=== PATIENT | female | born 1935 | race Caucasian/White ===

== ENCOUNTER → 2016-10-12 | Outpatient (CLI) | payer OTHER ==
[~2016-10-12] MED LIST: METR-103; ROSU5TAB5 PO
[2016-10-12 10:32] LABS: Albumin 3.7 g/dL (3.4-5.0); BUN/Creatinine Ratio 14.1; Bilirubin, Total 0.4 mg/dL (0.2-1.0); Calcium 9.2 mg/dL (8.5-10.1); Potassium 4.5 mmol/L (3.5-5.1); Total Protein 7.5 g/dL (6.4-8.2)
== END | disposition home or self-care (01) ==
LOC: LAB 08:54
PROVIDERS: ATTEND Family Medicine
DX: E78.5 Hyperlipidemia, unspecified (principal); E58 Dietary calcium deficiency
CPT/HCPCS: 36415; 80053; 80061; 82607

== ENCOUNTER → 2017-06-01 | Outpatient (CLI) | payer MEDICARE, OTHER ==
[2017-06-01 07:48] LABS: Urine RBC None Seen /hpf (0 - 4)
[2017-06-01 07:56] LABS: Basophils # (auto) 0 uL; CONDITION Y; DEFINITIVE SEE PRINTOUT; Eosinophils # (auto) 0.1 uL; Lymphocytes # (auto) 1.4 uL; Monocytes # (auto) 0.4 uL; Neutrophils # (auto) 3.2 uL; Platelet Count (auto) 283 10^3/uL (140-450); White Blood Cell 5.1 10^3/uL (4.4-10.8)
[2017-06-01 08:07] LABS: Urine Bilirubin Negative (Negative); Urine Blood Negative /uL (Negative); Urine Color Yellow (Yellow); Urine Glucose Normal (Normal); Urine Ketone Negative (Negative); Urine Nitrite Negative (Negative); Urine Squamous Epithelial Cell FEW /hpf (<5); Urine Urobilinogen Normal (Negative); Urine pH 7.5 (5.0-8.0)
[2017-06-01 08:08] LABS: Basophils % (auto) 0.6 % (0.0-2.0); Eosinophils % (auto) 1.6 % (0.0-7.0); Hematocrit 38.6 % (36.0-46.0); Hemoglobin 12.7 g/dL (12.2-16.2); Mean Corpuscular Hemoglobin 27.2 pg (28.0-32.0); Mean Corpuscular Volume 82.6 fL (80.0-100.0); Mean Platelet Volume 9.1 fL (7.4-10.4); Monocytes % (auto) 7.9 % (0.0-12.0); Neutrophils % (auto) 62.9 % (37.0-80.0); Red Cell Distribution Width 16.1 % (11.6-16.0)
[2017-06-01 08:32] LABS: Albumin 3.7 g/dL (3.4-5.0); Bilirubin, Total 0.3 mg/dL (0.2-1.0); Calcium 9.1 mg/dL (8.5-10.1); Potassium 4.1 mmol/L (3.5-5.1); Total Protein 7.3 g/dL (6.4-8.2)
== END | disposition home or self-care (01) ==
LOC: LAB 06:52
PROVIDERS: ATTEND Family Medicine
DX: E78.5 Hyperlipidemia, unspecified (principal); E53.8 Deficiency of other specified B group vitamins; E55.9 Vitamin D deficiency, unspecified; R73.09 Other abnormal glucose
CPT/HCPCS: 36415; 80053; 80061; 81001; 82306; 82607; 83036; 84443; 85025

== ENCOUNTER → 2017-10-06 | Outpatient (CLI) | payer MEDICARE, OTHER | END | disposition home or self-care (01) | LOC: LAB 12:10 | PROVIDERS: ATTEND Physician Assistant | DX: R19.7 Diarrhea, unspecified (principal); R11.0 Nausea | CPT/HCPCS: 87045; 87177; 87493; 87899 ==

== ENCOUNTER → 2018-01-25 | Outpatient (CLI) | payer MEDICARE, OTHER | END | disposition home or self-care (01) | LOC: LAB 09:36 | PROVIDERS: ATTEND Family Medicine | DX: E03.9 Hypothyroidism, unspecified (principal); E78.5 Hyperlipidemia, unspecified | CPT/HCPCS: 36415; 84443 ==

== ENCOUNTER → 2018-06-13 | Outpatient (CLI) | payer MEDICARE, OTHER ==
[~2018-06-13] MED LIST changes: +LEVO25TA6 PO; +PANT40TA2 PO
[2018-06-13 08:30] LABS: Eosinophils # (auto) 0.1 uL; Hematocrit 34.7 % (36.0-46.0); Hemoglobin 11.4 g/dL (12.2-16.2); Lymphocytes # (auto) 1.4 uL; Monocytes # (auto) 0.7 uL; Neutrophils # (auto) 4.7 uL; White Blood Cell 6.9 10^3/uL (4.4-10.8)
[2018-06-13 08:32] LABS: Basophils # (auto) 0.1 uL; Basophils % (auto) 0.8 % (0.0-2.0); Eosinophils % (auto) 1.6 % (0.0-7.0); Mean Corpuscular Hgb Conc. 32.9 g/dL (32.0-36.0); Mean Corpuscular Volume 75.1 fL (80.0-100.0); Monocytes % (auto) 9.5 % (0.0-12.0); Neutrophils % (auto) 68.1 % (37.0-80.0); Platelet Count (auto) 456 10^3/uL (140-450); Red Blood Cells 4.62 10^6/uL (4.0-5.20); Urine Bacteria FEW /hpf (None Seen); Urine Blood Negative /uL (Negative); Urine Mucus FEW (None Seen); Urine Specific Gravity 1.012 (1.001-1.035); Urine WBC 14 /hpf (0 - 5)
[2018-06-13 08:34] LABS: Mean Corpuscular Hemoglobin 24.8 pg (28.0-32.0)
[2018-06-13 08:52] LABS: Albumin 3.3 g/dL (3.4-5.0); BUN/Creatinine Ratio 15.9; Bilirubin, Total 0.4 mg/dL (0.2-1.0); Calcium 9.2 mg/dL (8.5-10.1); Potassium 4.1 mmol/L (3.5-5.1); Total Protein 7.9 g/dL (6.4-8.2)
== END | disposition home or self-care (01) ==
LOC: LAB 07:50
PROVIDERS: ATTEND Family Medicine
DX: E03.9 Hypothyroidism, unspecified (principal); E53.8 Deficiency of other specified B group vitamins; E78.4 Other hyperlipidemia; K21.9 Gastro-esophageal reflux disease without esophagitis; R05 Cough; R73.09 Other abnormal glucose
CPT/HCPCS: 36415; 80053; 80061; 81001; 82607; 83036; 84443; 85025

== ENCOUNTER 2018-07-17 08:03 | Day surgery (SDC) | payer MEDICARE, OTHER ==
[2018-07-13 10:04] LABS: Basophils # (auto) 0 uL; Basophils % (auto) 0.5 % (0.0-2.0); Eosinophils # (auto) 0.1 uL; Eosinophils % (auto) 1.2 % (0.0-7.0); Hematocrit 33.8 % (36.0-46.0); Hemoglobin 11.3 g/dL (12.2-16.2); Lymphocytes # (auto) 1.3 uL; Lymphocytes % (auto) 15.9 % (10.0-50.0); Mean Corpuscular Hemoglobin 25.1 pg (28.0-32.0); Mean Corpuscular Hgb Conc. 33.5 g/dL (32.0-36.0); Mean Corpuscular Volume 74.8 fL (80.0-100.0); Monocytes # (auto) 0.8 uL; Monocytes % (auto) 9.7 % (0.0-12.0); Neutrophils # (auto) 6.2 uL; Neutrophils % (auto) 72.7 % (37.0-80.0); Platelet Count (auto) 401 10^3/uL (140-450); Red Blood Cells 4.52 10^6/uL (4.0-5.20); Red Cell Distribution Width 16.4 % (11.8-14.3); White Blood Cell 8.5 10^3/uL (4.4-10.8)
[2018-07-13 10:08] LABS: Urine Blood Negative /uL (Negative); Urine Specific Gravity 1.008 (1.001-1.035)
[2018-07-13 10:24] LABS: INR 0.94 (0.9-1.15); Partial Thromboplastin Time 28.7 sec (23.78-33.04); Prothrombin Time 10.1 sec (9.27-12.13)
[~2018-07-17] VITALS: Ht 170.2 cm; Wt 64.0 kg
[~2018-07-17 08:03] MED LIST changes: -METR-103; -ROSU5TAB5 PO
[2018-07-17] MEDS ORDERED: SODIUM CHLORIDE LOCK 10 ML ONE (08:26)
[2018-07-17] MEDS: fentaNYL CITRATE 100 MCG/2 ML VL ONE ×2 (09:31→09:35)
[2018-07-17] MEDS: MIDAZOLAM HCL 5 MG/ML-1ML VIAL ONE ×3 (09:31→09:40)
[2018-07-17 10:25] VITALS: BP 113/79
== END 2018-07-17 10:28 | disposition home or self-care (01) ==
LOC: GI 08:03
PROVIDERS: ATTEND Internal Medicine Gastroenterology
DX: K57.30 Diverticulosis of large intestine without perforation or abscess without bleeding (principal); K64.8 Other hemorrhoids; K21.9 Gastro-esophageal reflux disease without esophagitis; Z88.0 Allergy status to penicillin; Z88.1 Allergy status to other antibiotic agents; Z88.2 Allergy status to sulfonamides; Z90.49 Acquired absence of other specified parts of digestive tract; Z90.13 Acquired absence of bilateral breasts and nipples; Z79.899 Other long term (current) drug therapy; Z98.890 Other specified postprocedural states
CPT/HCPCS: 36415; 45378; 81003; 85025; 85610; 85730; J2250; J3010; J7030; G0500

== ENCOUNTER → 2018-08-11 | Outpatient (CLI) | payer MEDICARE, OTHER | END | disposition home or self-care (01) | LOC: LAB 09:58 | PROVIDERS: ATTEND Family Medicine | DX: E03.9 Hypothyroidism, unspecified (principal); E55.9 Vitamin D deficiency, unspecified; R79.89 Other specified abnormal findings of blood chemistry | CPT/HCPCS: 36415; 82306; 82607; 84443 ==

== ENCOUNTER → 2019-06-25 | Outpatient (CLI) | payer MEDICARE, OTHER ==
[2019-06-25 08:58] LABS: Urine Bacteria NONE SEEN /hpf (None Seen); Urine Blood Negative /uL (Negative); Urine Specific Gravity 1.013 (1.001-1.035); Urine WBC 4 /hpf (0 - 5)
[2019-06-25 08:59] LABS: Basophils # (auto) 0 uL; Basophils % (auto) 0.7 % (0.0-2.0); Eosinophils # (auto) 0.1 uL; Eosinophils % (auto) 0.8 % (0.0-7.0); Hematocrit 37.7 % (36.0-46.0); Hemoglobin 12.3 g/dL (12.2-16.2); Lymphocytes # (auto) 1.3 uL; Lymphocytes % (auto) 19.3 % (10.0-50.0); Mean Corpuscular Hemoglobin 24.8 pg (28.0-32.0); Mean Corpuscular Hgb Conc. 32.6 g/dL (32.0-36.0); Mean Corpuscular Volume 76.2 fL (80.0-100.0); Monocytes # (auto) 0.5 uL; Monocytes % (auto) 8.1 % (0.0-12.0); Neutrophils # (auto) 4.8 uL; Neutrophils % (auto) 71.1 % (37.0-80.0); Platelet Count (auto) 312 10^3/uL (140-450); Red Blood Cells 4.94 10^6/uL (4.0-5.20); Red Cell Distribution Width 17.6 % (11.8-14.3); White Blood Cell 6.7 10^3/uL (4.4-10.8)
[2019-06-25 09:16] LABS: Potassium 4.3 mmol/L (3.5-5.1)
[2019-06-25 09:26] LABS: Albumin 3.6 g/dL (3.4-5.0); BUN/Creatinine Ratio 14.3; Bilirubin, Total 0.5 mg/dL (0.2-1.0); Calcium 9.5 mg/dL (8.5-10.1); Total Protein 7.8 g/dL (6.4-8.2)
== END | disposition home or self-care (01) ==
LOC: LAB 07:54
PROVIDERS: ATTEND Family Medicine
DX: E55.9 Vitamin D deficiency, unspecified (principal); E03.9 Hypothyroidism, unspecified; E78.00 Pure hypercholesterolemia, unspecified; K21.9 Gastro-esophageal reflux disease without esophagitis; K62.3 Rectal prolapse; R74.8 Abnormal levels of other serum enzymes
CPT/HCPCS: 36415; 80053; 80061; 81001; 82607; 84443; 85025

== ENCOUNTER → 2019-07-09 | Day surgery (SDC) | payer OTHER ==
[2019-07-06 09:19] LABS: Eosinophils # (auto) 0.1 uL; Lymphocytes # (auto) 1.4 uL; Platelet Count (auto) 302 10^3/uL (140-450)
[2019-07-06 09:22] LABS: Basophils # (auto) 0 uL; Basophils % (auto) 0.6 % (0.0-2.0); Hematocrit 35.1 % (36.0-46.0); Lymphocytes % (auto) 21.6 % (10.0-50.0); Mean Corpuscular Hemoglobin 25.3 pg (28.0-32.0); Mean Corpuscular Hgb Conc. 34.2 g/dL (32.0-36.0); Mean Corpuscular Volume 73.8 fL (80.0-100.0); Monocytes # (auto) 0.5 uL; Monocytes % (auto) 8.5 % (0.0-12.0); Neutrophils # (auto) 4.4 uL; Neutrophils % (auto) 68.3 % (37.0-80.0); Red Blood Cells 4.75 10^6/uL (4.0-5.20); Red Cell Distribution Width 16.9 % (11.8-14.3); White Blood Cell 6.5 10^3/uL (4.4-10.8)
[2019-07-06 09:35] LABS: INR 0.93 (0.9-1.15); Partial Thromboplastin Time 28.3 sec (23.64-32.05)
[~2019-07-09] VITALS: Ht 170.2 cm; Wt 64.0 kg
[~2019-07-09] MED LIST changes: +FLUMAZENIL 0.1 MG/ML INJ 10ML MDV IV ONE; +NALOXONE HCL 0.4 MG/ML VIAL ONE; -PANT40TA2 PO; +SODIUM CHLORIDE LOCK 10 ML ONE; +diphenhdrAMINE HCL 50 MG/1 ML VL ONE
[2019-07-09] MEDS: fentaNYL CITRATE 100 MCG/2 ML VL ONE ×3 (09:15→09:27)
[2019-07-09] MEDS: MIDAZOLAM HCL 5 MG/ML-1ML VIAL ONE ×3 (09:15→09:27)
[2019-07-09 10:13] VITALS: BP 139/76
== END | disposition home or self-care (01) ==
LOC: GI 07:47
PROVIDERS: ATTEND Internal Medicine Gastroenterology
DX: K62.5 Hemorrhage of anus and rectum (principal); K62.3 Rectal prolapse; D12.0 Benign neoplasm of cecum; K57.30 Diverticulosis of large intestine without perforation or abscess without bleeding; M81.0 Age-related osteoporosis without current pathological fracture; E78.5 Hyperlipidemia, unspecified; K21.9 Gastro-esophageal reflux disease without esophagitis; E78.00 Pure hypercholesterolemia, unspecified; I10 Essential (primary) hypertension; Z85.840 Personal history of malignant neoplasm of eye; Z86.010 Personal history of colon polyps; Z98.890 Other specified postprocedural states; Z88.1 Allergy status to other antibiotic agents; Z88.8 Allergy status to other drugs, medicaments and biological substances; Z88.0 Allergy status to penicillin; Z88.2 Allergy status to sulfonamides; Z78.0 Asymptomatic menopausal state
CPT/HCPCS: 36415; 45380; 85025; 85610; 85730; 88305; J1200; J2250; J3010; J7030; 99152

== ENCOUNTER → 2020-02-19 | Emergency (ER) | payer OTHER ==
[~2020-02-19] VITALS: Ht 170.2 cm; Wt 62.6 kg
[~2020-02-19] MED LIST changes: -FLUMAZENIL 0.1 MG/ML INJ 10ML MDV IV ONE; +IOHEXOL 350 MG/ML 100ML IJ ONE; -NALOXONE HCL 0.4 MG/ML VIAL ONE; -SODIUM CHLORIDE LOCK 10 ML ONE; -diphenhdrAMINE HCL 50 MG/1 ML VL ONE
[2020-02-19 17:49] LABS: Basophils # (auto) 0 10 ^3/uL (0-0.2); Eosinophils # (auto) 0 10 ^3/uL (0-0.8); Hemoglobin 11.2 g/dL (12.2-16.2); Lymphocytes # (auto) 1.8 10 ^3/uL (0.4-5.4); Monocytes # (auto) 0.8 10 ^3/uL (0-1.3); Neutrophils # (auto) 4.6 10 ^3/uL (1.6-8.6)
[2020-02-19 17:51] LABS: Basophils % (auto) 0.5 % (0.0-2.0); Eosinophils % (auto) 0.3 % (0.0-7.0); Hematocrit 34.2 % (36.0-46.0); Lymphocytes % (auto) 24.9 % (10.0-50.0); Mean Corpuscular Hemoglobin 24.1 pg (28.0-32.0); Mean Corpuscular Hgb Conc. 32.8 g/dL (32.0-36.0); Mean Corpuscular Volume 73.5 fL (80.0-100.0); Monocytes % (auto) 10.4 % (0.0-12.0); Neutrophils % (auto) 63.9 % (37.0-80.0); Nucleated Red Blood Cells % 0.1 %; Platelet Count (auto) 466 10^3/uL (140-450); Red Blood Cells 4.65 10^6/uL (4.0-5.20); Red Cell Distribution Width 15.7 % (11.8-14.3); White Blood Cell 7.2 10^3/uL (4.4-10.8)
[2020-02-19 18:05] LABS: Anion Gap 6 (5-15); BUN/Creatinine Ratio 18.5; Blood Urea Nitrogen 10 mg/dL (7-18); Carbon Dioxide 27 mmol/L (21-32); Chloride 103 mmol/L (98-107); GFR African American 139 mL/min; GFR Non-African American 115 mL/min; Glucose 120 mg/dL (74-106); Potassium 3.4 mmol/L (3.5-5.1); Sodium 136 mmol/L (136-145)
[2020-02-19 18:06] LABS: Albumin 3.1 g/dL (3.4-5.0); Calcium 8.7 mg/dL (8.5-10.1)
[2020-02-19 18:11] LABS: Alanine Aminotransferase 13 U/L (13-56); Alkaline Phosphatase 97 U/L (45-117); Aspartate Aminotransferase 9 U/L (15-37); Bilirubin, Total 0.3 mg/dL (0.2-1.0)
[2020-02-19 22:28] VITALS: BP 133/76
== END | disposition home or self-care (01) ==
LOC: ER 17:25
DX: J06.9 Acute upper respiratory infection, unspecified (principal)
CPT/HCPCS: 36415; 71275; 80053; 83735; 83880; 84484; 85025; 85379; 93005; 99285; Q9967

== ENCOUNTER → 2020-02-20 | Outpatient (CLI) | payer OTHER ==
[~2020-02-20] MED LIST changes: -IOHEXOL 350 MG/ML 100ML IJ ONE
== END | disposition home or self-care (01) ==
LOC: LAB 07:25
PROVIDERS: ATTEND Nurse Practitioner
DX: Z03.818 Encounter for observation for suspected exposure to other biological agents ruled out (principal)
CPT/HCPCS: C9803; U0003; 87635

== ENCOUNTER 2020-04-09 11:20 | Inpatient (IN) | payer OTHER ==
[~2020-04-09] VITALS: Ht 170.2 cm; Wt 75.6 kg
[2020-04-09] MEDS ORDERED: SODIUM CHLORIDE 0.9% 1,000 ML IVB ONE (12:02)
[2020-04-09] MEDS ORDERED: ONDANSETRON HCL 4 MG/2 ML VIAL IV ONE (13:30)
[2020-04-09] MEDS ORDERED: MORPHINE SULF INJ 2 MG/ML SYRINGE 1ML IV ONE (13:30)
[2020-04-09 13:49] LABS: Basophils # (auto) 0 10 ^3/uL (0-0.2); Eosinophils # (auto) 0 10 ^3/uL (0-0.8); Hemoglobin 11.3 g/dL (12.2-16.2); Lymphocytes # (auto) 0.9 10 ^3/uL (0.4-5.4); Monocytes # (auto) 0.7 10 ^3/uL (0-1.3); Neutrophils # (auto) 11.1 10 ^3/uL (1.6-8.6); White Blood Cell 12.7 10^3/uL (4.4-10.8)
[2020-04-09 13:51] LABS: Basophils % (auto) 0.3 % (0.0-2.0); Hematocrit 34.6 % (36.0-46.0); Mean Corpuscular Hemoglobin 23.6 pg (28.0-32.0); Mean Corpuscular Hgb Conc. 32.5 g/dL (32.0-36.0); Mean Corpuscular Volume 72.5 fL (80.0-100.0); Monocytes % (auto) 5.4 % (0.0-12.0); Neutrophils % (auto) 87.3 % (37.0-80.0); Platelet Count (auto) 330 10^3/uL (140-450); Red Blood Cells 4.77 10^6/uL (4.0-5.20)
[2020-04-09 14:01] LABS: Albumin 3.2 g/dL (3.4-5.0); Anion Gap 6 (5-15); Blood Urea Nitrogen 14 mg/dL (7-18); Calcium 8.6 mg/dL (8.5-10.1); Carbon Dioxide 26 mmol/L (21-32); Chloride 106 mmol/L (98-107); Glucose 97 mg/dL (74-106); Magnesium 2.1 mg/dL (1.6-2.6); Potassium 3.4 mmol/L (3.5-5.1); Sodium 138 mmol/L (136-145)
[2020-04-09 14:06] LABS: INR 1.02 (0.9-1.15); Partial Thromboplastin Time 27.3 sec (23.64-32.05)
[2020-04-09 14:09] LABS: Alanine Aminotransferase 21 U/L (13-56); Alkaline Phosphatase 93 U/L (45-117); Aspartate Aminotransferase 15 U/L (15-37); BUN/Creatinine Ratio 28.6; Bilirubin, Total 0.4 mg/dL (0.2-1.0); GFR African American 155 mL/min; GFR Non-African American 128 mL/min; Total Protein 7.1 g/dL (6.4-8.2)
[2020-04-09 16:10] LABS: Urine Bacteria NONE SEEN /hpf (None Seen); Urine Blood Negative /uL (Negative); Urine Specific Gravity 1.006 (1.001-1.035); Urine WBC <1 /hpf (0 - 5)
[2020-04-09] MEDS ORDERED: LORazepam 0.5 MG TAB PO PRN (17:15)
[2020-04-09] MEDS ORDERED: DOCUSATE SOD 100 MG CAP PO PRN (17:15)
[2020-04-09] MEDS ORDERED: NITROGLYCERIN 0.4 MG SL TAB SL PRN (17:15)
[2020-04-09] MEDS ORDERED: ALUM & MAG HYDROX-SIMETH LIQ(MAALOX) 30 ML PO PRN (17:15)
[2020-04-09] MEDS ORDERED: MORPHINE SULF INJ 2 MG/ML SYRINGE 1ML IV PRN (17:15)
[2020-04-09] MEDS ORDERED: cefTRIAXone 1GM/50ML D5W 50 ML IV ONE (18:00)
[2020-04-09 18:16] LABS: Anion Gap 7 (5-15); Blood Urea Nitrogen 11 mg/dL (7-18); Carbon Dioxide 24 mmol/L (21-32); Chloride 105 mmol/L (98-107); GFR African American 176 mL/min; GFR Non-African American 145 mL/min; Glucose 110 mg/dL (74-106); Potassium 3.6 mmol/L (3.5-5.1); Sodium 136 mmol/L (136-145)
[2020-04-09 18:29] LABS: Cholesterol 174 mg/dL (< 200); HDL Cholesterol 56 mg/dL (40-59); LDL Cholesterol 110 mg/dL (< 100); Triglycerides 71 mg/dL (< 150)
[2020-04-09] MEDS: D5W/SOD CHL 0.45% 1,000 ML IV SCH (18:56)
--- NOTE | 2020-04-09 19:35 | NUR ---
Tele admit from ER Patient arrived to the unit on a stretcher and was transferred over to the hospital bed. Smith catheter patent and draining clear yellow urine. IV to left wrist patent. Telemetry #40. ID band on. Patient is alert and oriented. She was oriented to the unit, room, call light, nurse, and RETIREMENT SPECIALIST. Called lab for a COVID swab to be sent up. Started IV fluids as ordered. Skin is intact. Fall band placed on patient. She was instructed to call for assistance.
--- NOTE | 2020-04-09 19:40 | NUR ---
Opening Shift Note Assumed care of patient, awake and alert, oriented x 4, follows direction, clear speech. Patient on room air with even and unlabored respirations, no S/S of distress or SOB. Smith intact and draining to gravity. Bed in lowest locked position with side rails up x 2 and call light within reach, bed alarm on, fall precautions in place. Instructed on POC and to call for assist PRN, will continue to monitor for changes Q1hr and PRN.
[2020-04-09 20:46] LABS: Alcohol, Urine < 3.0 mg/dL (0-10); Amphetamine Screen, Urine NEGATIVE (NEGATIVE); Barbiturate Scree,Urine NEGATIVE (NEGATIVE); Benzodiazephine Screen, Urine NEGATIVE (NEGATIVE); Cannabinoid Screen, Urine NEGATIVE (NEGATIVE); Cocaine Screen, Urine NEGATIVE (NEGATIVE); Opiate Scree,Urine NEGATIVE (NEGATIVE); Phencyclidine Screen, Urine NEGATIVE (NEGATIVE)
[2020-04-09] MEDS: MORPHINE SULF INJ 2 MG/ML SYRINGE 1ML IV PRN (21:59)
[2020-04-09] MEDS: ONDANSETRON HCL 4 MG/2 ML VIAL IV PRN (22:05)
[2020-04-10] MEDS ORDERED: FAMOTIDINE 20 MG TAB PO ONE (01:15)
[2020-04-10] MEDS ORDERED: ceFAZolin 1GM/50ML 50 ML IV ONE (01:15)
[2020-04-10] MEDS: MORPHINE SULF INJ 2 MG/ML SYRINGE 1ML IV PRN ×2 (03:09→13:53)
[2020-04-10] MEDS: ONDANSETRON HCL 4 MG/2 ML VIAL IV PRN ×2 (03:09→13:51)
[2020-04-10 05:00] VITALS: BP 105/67
[2020-04-10] MEDS ORDERED: TRAM50TA2 PO (05:31)
[2020-04-10] MEDS ORDERED: ALBU108A5 IN (05:31)
[2020-04-10] MEDS: LEVOTHYROXINE SODIUM 25 MCG TAB PO SCH (05:50)
[2020-04-10] MEDS ORDERED: ceFAZolin 1GM/50ML 50 ML IV SCH (06:00)
[2020-04-10 06:38] LABS: Basophils # (auto) 0 10 ^3/uL (0-0.2); Eosinophils # (auto) 0.1 10 ^3/uL (0-0.8); Hematocrit 32.3 % (36.0-46.0); Hemoglobin 10.7 g/dL (12.2-16.2); Lymphocytes % (auto) 9.8 % (10.0-50.0); Monocytes # (auto) 0.7 10 ^3/uL (0-1.3)
[2020-04-10 06:39] LABS: Basophils % (auto) 0.3 % (0.0-2.0); Eosinophils % (auto) 1.4 % (0.0-7.0); Mean Corpuscular Hemoglobin 24.1 pg (28.0-32.0); Mean Corpuscular Volume 72.9 fL (80.0-100.0); Monocytes % (auto) 6.7 % (0.0-12.0); Neutrophils % (auto) 81.8 % (37.0-80.0); Platelet Count (auto) 273 10^3/uL (140-450); Red Blood Cells 4.44 10^6/uL (4.0-5.20); Red Cell Distribution Width 19.2 % (11.8-14.3); White Blood Cell 9.8 10^3/uL (4.4-10.8)
[2020-04-10 06:46] LABS: INR 1.03 (0.9-1.15); Partial Thromboplastin Time 33.3 sec (23.64-32.05)
[2020-04-10 06:55] LABS: Albumin 2.8 g/dL (3.4-5.0); Calcium 8.2 mg/dL (8.5-10.1); Magnesium 2.2 mg/dL (1.6-2.6); Potassium 3.6 mmol/L (3.5-5.1)
[2020-04-10 06:59] LABS: BUN/Creatinine Ratio 17.6; Bilirubin, Total 0.7 mg/dL (0.2-1.0); Phosphorus 2.9 mg/dL (2.5-4.90); Total Protein 6.9 g/dL (6.4-8.2)
--- NOTE | 2020-04-10 07:00 | NUR ---
closing note status unchanged. patient resting in bed with even and unlabored respirations, no s/s of distress. patient remains npo. Bed in low locked position with side rails up x 2 and call light within reach. Endorsed care to day shift RN
[2020-04-10] MEDS ORDERED: cefTRIAXone 1GM/50ML D5W 50 ML IV SCH (09:00)
[2020-04-10 09:18] VITALS: BP 109/71
[2020-04-10] MEDS: D5W/SOD CHL 0.45% 1,000 ML IV SCH (09:50)
[2020-04-10] MEDS: FAMOTIDINE 20 MG TAB PO SCH (10:05)
--- NOTE | 2020-04-10 10:44 | NUR ---
Clear for Surgery Upon receiving the patient learned most of the pre-op checklist was completed. The patient has not signed consent forms as she was not told about the procedure by Dr. Quintana. CATE Morejon completed, new gown given. The patient was cleared by cardiology and medicine for surgery. Will continue to monitor.
[2020-04-10 12:38] VITALS: BP 108/65
[2020-04-10] MEDS ORDERED: TETRACAINE 1% INJ 2 ML VIAL IJ ONE ×2 (14:24→14:41)
[2020-04-10] MEDS ORDERED: fentaNYL CITRATE 100 MCG/2 ML VL ONE (14:33)
[2020-04-10] MEDS ORDERED: MORPHINE SULF(PF) 0.5MG/ML 10ML VIAL ONE ×2 (14:33→15:21)
[2020-04-10] MEDS ORDERED: MIDAZOLAM HCL 1MG/1ML-2 ML VIAL ONE (14:34)
[2020-04-10] MEDS ORDERED: SODIUM CHLORIDE LOCK 10 ML ONE (14:34)
[2020-04-10] MEDS ORDERED: EPINEPHrine HCL 1 MG/1 ML AMP ONE (14:34)
[2020-04-10] MEDS ORDERED: ONDANSETRON HCL 4 MG/2 ML VIAL ONE (14:34)
[2020-04-10] MEDS ORDERED: PROPOFOL 10 MG/ML 20 ML IV ONE (14:34)
[2020-04-10] MEDS ORDERED: KETOROLAC TROMETH 30 MG/ML 1ML VIAL ONE (15:19)
[2020-04-10] MEDS ORDERED: VANCOMYCIN HCL 1000 MG VL ONE (15:19)
[2020-04-10] MEDS: LACTATED RINGER'S 1,000 ML IV SCH (17:24)
--- NOTE | 2020-04-10 19:01 | NUR ---
Patient Back from Surgery The patient returned approximately 1845hrs from the PACU. She was awake, A&Ox4, pain free. She was able to move her toes slightly, abductor pillow in place, VS within limits. Called her family and spoke to Yun Nelson. Explained she was back from surgery and trying to eat dinner. Will continue to monitor.
--- NOTE | 2020-04-10 19:18 | NUR ---
Opening Shift Note Assumed care of patient. Pt laying down in semi-fowlers position in bed. Pt is resting with eyes closed. Pt aroused by name. Pt is on 2 L NC with even and unlabored respirations. No S/S of distress/SOB or pain At this time. Bed is in lowest position, wheels are locked, side rails up x2, bed alarm set for safety and call light is within reach. Instructed on POC and to call for assist PRN, will continue to monitor for changes Q1hr and PRN.
[2020-04-10 22:00] VITALS: BP 97/65
--- NOTE | 2020-04-11 00:10 | NUR ---
Rounds Patient sleeping quietly in bed. Pt is on 2 L NC with even chest rise and fall present. No S/S of distress/SOB or pain. Will continue to monitor changes q1hr and PRN.
[2020-04-11] MEDS: D5W/SOD CHL 0.45% 1,000 ML IV SCH ×2 (02:53→18:14)
[2020-04-11] MEDS: LACTATED RINGER'S 1,000 ML IV SCH ×3 (03:24→23:24)
--- NOTE | 2020-04-11 03:40 | NUR ---
ASSUMED CARE ASSUMED CARE OF PATIENT AFTER REPORT RECEIVED FROM JILLIAN DURAN. PATIENT ASLEEP, EVEN UNLABORED RESPIRATIONS. NO S/S OF DISTRESS, SOB OR PAIN. BED ALARM ON FOR SAFETY. WILL CONTINUE TO MONITOR
[2020-04-11 05:18] VITALS: BP 138/46
[2020-04-11 05:24] LABS: Basophils # (auto) 0 10 ^3/uL (0-0.2); Basophils % (auto) 0.3 % (0.0-2.0); Eosinophils # (auto) 0.1 10 ^3/uL (0-0.8); Eosinophils % (auto) 1.2 % (0.0-7.0); Hemoglobin 9.1 g/dL (12.2-16.2); Lymphocytes % (auto) 10.4 % (10.0-50.0); Mean Corpuscular Hgb Conc. 32.5 g/dL (32.0-36.0); Mean Corpuscular Volume 73.8 fL (80.0-100.0); Monocytes # (auto) 0.9 10 ^3/uL (0-1.3); Monocytes % (auto) 8.7 % (0.0-12.0); Neutrophils % (auto) 79.4 % (37.0-80.0); Platelet Count (auto) 224 10^3/uL (140-450); Red Cell Distribution Width 19.2 % (11.8-14.3)
[2020-04-11 05:35] LABS: Albumin 2.4 g/dL (3.4-5.0); Calcium 7.9 mg/dL (8.5-10.1); Potassium 4.1 mmol/L (3.5-5.1)
[2020-04-11 05:40] LABS: BUN/Creatinine Ratio 15.9; Bilirubin, Total 0.6 mg/dL (0.2-1.0); Total Protein 5.8 g/dL (6.4-8.2)
[2020-04-11] MEDS: LEVOTHYROXINE SODIUM 25 MCG TAB PO SCH (06:39)
--- NOTE | 2020-04-11 06:50 | NUR ---
INCENTIVE SPIROMETER INSTRUCTED PATIENT ON USE OF I/S, EDUCATED PATIENT TO PERFORM I/S EXERCISES T LEAST 10X/HOUR. PATIENT VERBALIZED UNDERSTANDING AND RETURNED DEMONSTRATION. WILL CONTINUE TO MONITOR
[2020-04-11] MEDS: FAMOTIDINE 20 MG TAB PO SCH (09:03)
[2020-04-11] MEDS: ENOXAPARIN SOD 40 MG/0.4 ML SYRINGE SC SCH (09:03)
[2020-04-11 09:30] VITALS: BP 96/49
[2020-04-11] MEDS: ACETAMINOPHEN 325 MG TAB PO PRN ×2 (11:21→22:42)
[2020-04-11 13:31] VITALS: BP 97/56
[2020-04-11 17:07] VITALS: BP 94/66
--- NOTE | 2020-04-11 19:15 | NUR ---
RESUMED CARE OF PT, PT AWAKE AND ALERT NO SIGNS AND SYMPTOMS OF DISTRESS OR SOB NOTED. BED IS IN THE LOWEST LOCKED POSITION, SIDE RAILS UP X 2 CALL LIGHT WITH IN REACH. UPDATED PT ON PLAN OF CARE AND PT VERBALIZED UNDERSTANDING WILL CONTINUE TO MONITOR Q1HR AN PRN
[2020-04-11] MEDS: MORPHINE SULF INJ 2 MG/ML SYRINGE 1ML IV PRN (20:18)
[2020-04-11] MEDS: ONDANSETRON HCL 4 MG/2 ML VIAL IV PRN (20:18)
[2020-04-11 22:00] VITALS: BP 107/56
--- NOTE | 2020-04-11 22:30 | NUR ---
PT TEMPERATURE IS 101.5 GIVE TYLENOL PO WILL REASSESS
--- NOTE | 2020-04-11 23:42 | NUR ---
PT TEMPERATURE IS 100.2 MEDICATION NOT DUE .APPLIED COOLING MEASURE
--- NOTE | 2020-04-12 00:15 | NUR ---
LATEST TEMPERATURE LATEST TEMPERATURE 99.0
[2020-04-12 05:00] VITALS: BP 130/60
[2020-04-12 05:37] LABS: Hemoglobin 8.9 g/dL (12.2-16.2)
[2020-04-12] MEDS: LEVOTHYROXINE SODIUM 25 MCG TAB PO SCH (06:25)
--- NOTE | 2020-04-12 08:00 | NUR ---
Opening Shift Note Assumed care of patient, awake, alert, and oriented. No S/S of distress/SOB or pain. Bed in lowest/locked position, bed rails up x2, call light within reach. Instructed on POC and to call for assist PRN. Will continue to monitor for changes Q1hr and PRN.
--- NOTE | 2020-04-12 08:40 | NUR ---
MD ROUNDS DR Nathaniel DONALD AT BEDSIDE DISCUSSING POC WITH PATIENT. NO NEW ORDERS RECEIVED AT THIS TIME. WILL CONTINUE TO MONITOR
[2020-04-12] MEDS: LACTATED RINGER'S 1,000 ML IV SCH ×2 (08:54→19:24)
[2020-04-12 09:00] VITALS: BP 114/53
[2020-04-12] MEDS: FAMOTIDINE 20 MG TAB PO SCH (09:04)
[2020-04-12] MEDS: ENOXAPARIN SOD 40 MG/0.4 ML SYRINGE SC SCH (09:05)
[2020-04-12] MEDS: D5W/SOD CHL 0.45% 1,000 ML IV SCH (09:05)
[2020-04-12] MEDS: ONDANSETRON HCL 4 MG/2 ML VIAL IV PRN (09:52)
[2020-04-12] MEDS: MORPHINE SULF INJ 2 MG/ML SYRINGE 1ML IV PRN (09:52)
[2020-04-12 13:00] VITALS: BP 101/52
--- NOTE | 2020-04-12 15:40 | NUR ---
SNF PATIENT STATED "SHE IS WILLING TO GO TO SNF FOR REHAB." WILL CONTINUE TO MONITOR
--- NOTE | 2020-04-12 15:41 | NUR ---
Nutrition Assessment Notes Please refer to link for full assessment notes. Est Energy needs: 5851-9003 kcals (20-23 kcal/kgBW) Est Protein needs: 81-89 gms/day (1.0-1.1 gm/kgBW) Will continue to monitor and reassess prn. Addendum: 04/12/20 at [address] Amended: Links added.
[2020-04-12] MEDS: ACETAMINOPHEN 325 MG TAB PO PRN (16:35)
[2020-04-12 17:01] VITALS: BP 106/56
[2020-04-12 22:00] VITALS: BP 143/58
[2020-04-12] MEDS: HYDROcodone-ACET 5/325MG TAB PO PRN (22:06)
[2020-04-13] MEDS: D5W/SOD CHL 0.45% 1,000 ML IV SCH ×2 (04:41→23:32)
[2020-04-13 05:00] VITALS: BP 111/59
[2020-04-13] MEDS: LEVOTHYROXINE SODIUM 25 MCG TAB PO SCH (06:25)
[2020-04-13 06:53] LABS: Hemoglobin 8.2 g/dL (12.2-16.2)
[2020-04-13 06:56] LABS: Hematocrit 24.6 % (36.0-46.0)
--- NOTE | 2020-04-13 07:27 | NUR ---
Report given to Sagar Lund, patient is resting no distress and at 0600 inserted a new i.v.line in the right hand 22g. aseptic technique.
[2020-04-13 09:00] VITALS: BP 109/60
[2020-04-13] MEDS: ENOXAPARIN SOD 40 MG/0.4 ML SYRINGE SC SCH (09:58)
[2020-04-13] MEDS: FAMOTIDINE 20 MG TAB PO SCH (09:58)
[2020-04-13 13:00] VITALS: BP 93/51
[2020-04-13 17:00] VITALS: BP 121/52
--- NOTE | 2020-04-13 20:00 | NUR ---
Opening Shift Note Assumed care of patient, awake and alert. No S/S of distress/SOB or pain. Instructed on POC and to call for assist PRN, will continue to monitor for changes Q1hr and PRN.Dressing in the left hip dry and intact.
[2020-04-13] MEDS: HYDROcodone-ACET 5/325MG TAB PO PRN (23:31)
[2020-04-14 02:07] VITALS: BP 121/67
[2020-04-14 05:55] VITALS: BP 130/70
[2020-04-14] MEDS: LEVOTHYROXINE SODIUM 25 MCG TAB PO SCH (06:00)
--- NOTE | 2020-04-14 06:00 | NUR ---
IV insertion IV access obtained, via clean sterile technique by inserting 22 gauge catheter at after attempt. IV secured properly. No trauma to site. Patient tolerated procedure well. Addendum: 04/14/20 at 0633 by Marnie Cedeño RN Inserted in the left hand.
--- NOTE | 2020-04-14 07:27 | NUR ---
Care report given to Giovanna Bruce, patient is resting no distress.
[2020-04-14 09:00] VITALS: BP 120/55
[2020-04-14] MEDS: FAMOTIDINE 20 MG TAB PO SCH (09:44)
[2020-04-14] MEDS: ENOXAPARIN SOD 40 MG/0.4 ML SYRINGE SC SCH (09:44)
--- NOTE | 2020-04-14 12:10 | NUR ---
[place] CATHETER DC'D PER ORDER. CATHETER INTACT. PT TOLERATED PROCEDURE WELL.
[2020-04-14 13:00] VITALS: BP 119/59
[2020-04-14 17:00] VITALS: BP 122/62
--- NOTE | 2020-04-14 17:38 | NUR ---
D/C Planning Per SS consult for SNF placement. [facility] and [facility] do not have bed availability. Faxed clinical information to [facility], [facility], and [facility] Pending SNF placement acceptance.
--- NOTE | 2020-04-14 19:30 | NUR ---
Opening Shift Note Received report from constanza Bruce RN. Assumed care of patient, awake and alert. No S/S of distress/SOB or pain. Instructed on POC and to call for assist PRN, will continue to monitor for changes Q1hr and PRN. Bed placed in lowest position, bed alarm turned on and call light within reach.
[2020-04-14 22:00] VITALS: BP 120/62
--- NOTE | 2020-04-14 22:00 | NUR ---
ROUNDS Dressing to left hip is clean dry and intact. No distress noted
[2020-04-15 05:00] VITALS: BP 112/63
[2020-04-15] MEDS: LEVOTHYROXINE SODIUM 25 MCG TAB PO SCH (06:22)
--- NOTE | 2020-04-15 06:41 | NUR ---
Assisted patient to the commode and bedpan with limited assist last night. Patient tolerated well. Patient has no s/s of distress and denies pain.
--- NOTE | 2020-04-15 08:23 | NUR ---
ASSESSMENT CUSTOMS INSPECTOR SPOKE WITH PT PER INITIAL ASSESSMENT. PT IS A 84 YR OLD FEMALE ADMITTED FOR MECHANICAL FALL, FX OF FEMUR. PT STATES SHE SLIPPED ON GRAVEL, SHE WAS PREVIOUSLY INDEPENDENT WITH ADL'S, NO DME, MINIMAL MEDICAL HX OTHER THAN HYPOTHYROID. PT WAS A/A/OX4, RECEPTIVE TO SS VISIT. PT RESIDES ALONE IN HER OWN APARTMENT. SHE HAS A COUSIN (IDRIS KIRK) WHO LIVES IN THE SAME COMPLEX AND CAN ASSIST PT AT HOME. PT HAS 2 OTHER RELATIVES IN [place] WHO ARE SUPPORTIVE. PT DOES NOT HAVE CHILDREN. PT HAS AN AHCD ON FILE. HER PCP IS DR. CURRIE. PLAN IS FOR PT TO DC TO SNF. SS TO REMAIN AVAILABLE NEEDED. Addendum: 04/15/20 at 0821 by ROYA ZHAO SS Amended: Links added.
[2020-04-15] MEDS: FAMOTIDINE 20 MG TAB PO SCH (09:09)
[2020-04-15] MEDS: ENOXAPARIN SOD 40 MG/0.4 ML SYRINGE SC SCH (09:09)
--- NOTE | 2020-04-15 09:13 | NUR ---
D/C planning Received a follow up called from [facility] advising me they can accept patient to room 109 bed A accepting Md, Dr. Angel. [facility] has been arranged via [facility] with oxygen with a 13:00 pick and shovel man. Informed RN Teo.
[2020-04-15 09:19] VITALS: BP 119/69
[2020-04-15 12:20] VITALS: BP 106/61
--- NOTE | 2020-04-15 13:05 | NUR ---
DISCHARGE INSTRUCTION GIVEN TO PT, PT VERBALIZED UNDERSTANDING FOR TRANSFER ORDERS. EDUCATIONAL MATERIAL PROVIDED, ALL QUESTIONS AND CONCERNS ADDRESSED. PT IN AGREEMENT WITH TRANSFER. IV CATHETER DC'D CATHETER INTACT, NO PHLEBITIS. TELE BOX REMOVED AND RETURNED TO TELE DEPT. [facility] TRANSPORT ARRIVED, PT TRANSPORTED VIA GURNEY NO S/S OF DISTRESS.
== END 2020-04-15 13:00 | DRG 470 ==
LOC: ER 11:20 → EDBD 11:20 → EDUNIT# 11:20 → TELE 11:21 → TELE-CENTR 18:17
PROVIDERS: ADMIT Hospitalist; ATTEND Internal Medicine
PROC: 0SRS0JZ Replacement of Left Hip Joint, Femoral Surface with Synthetic Substitute, Open Approach (ICD-10-PCS; principal; 2020-04-10 15:26)
DX: S72.032A Displaced midcervical fracture of left femur, initial encounter for closed fracture (principal); E03.9 Hypothyroidism, unspecified; K21.9 Gastro-esophageal reflux disease without esophagitis; E78.5 Hyperlipidemia, unspecified; I10 Essential (primary) hypertension; M17.12 Unilateral primary osteoarthritis, left knee; D64.9 Anemia, unspecified; Z60.2 Problems related to living alone; R54 Age-related physical debility; W01.0XXA Fall on same level from slipping, tripping and stumbling without subsequent striking against object, initial encounter; Z82.49 Family history of ischemic heart disease and other diseases of the circulatory system; Z98.82 Breast implant status; Z85.3 Personal history of malignant neoplasm of breast; Z88.1 Allergy status to other antibiotic agents; Z88.0 Allergy status to penicillin; Z88.2 Allergy status to sulfonamides; Z90.49 Acquired absence of other specified parts of digestive tract; Y93.89 Activity, other specified; Y92.098 Other place in other non-institutional residence as the place of occurrence of the external cause; Y99.8 Other external cause status; Z91.81 History of falling; Z11.59 Encounter for screening for other viral diseases
CPT/HCPCS: 36415; 71045; 72170; 72192; 73501; 73502; 80048; 80053; 80061; 80307; 81001; 83036; 83735; 84100; 84443; 84484; 85014; 85018; 85025; 85610; 85730; 86850; 86900; 86901; 87086; 93005; 93306; 97116; 97163; 97530; A4565; G0378; J0171; J0690; J0696; J1885; J2250; J2405; J2704; J7060

== ENCOUNTER → 2020-08-28 | Outpatient (CLI) | payer OTHER ==
[~2020-08-28] MED LIST changes: +ALBU108A5 IN; +TRAM50TA2 PO
== END | disposition home or self-care (01) ==
LOC: LAB 16:36
PROVIDERS: ATTEND Urology
DX: N39.0 Urinary tract infection, site not specified (principal)
CPT/HCPCS: 87086

== ENCOUNTER → 2021-09-29 | Outpatient (CLI) | payer OTHER ==
[2021-09-29 13:09] LABS: Urine Bacteria NONE SEEN /hpf (None Seen); Urine Blood 1+ /uL (Negative); Urine Budding Yeast MANY /hpf (None Seen); Urine Specific Gravity 1.014 (1.001-1.035); Urine WBC 1032 /hpf (0 - 5); Urine WBC Clumps PRESENT /hpf (None Seen)
== END | disposition home or self-care (01) ==
LOC: LAB 12:34
PROVIDERS: ATTEND Student in an Organized Health Care Education/Training Program
DX: N39.0 Urinary tract infection, site not specified (principal)
CPT/HCPCS: 81001; 87086

== ENCOUNTER → 2022-06-02 | Outpatient (CLI) | payer OTHER ==
[2022-06-02 07:50] LABS: Basophils # (auto) 0.1 10 ^3/uL (0-0.2); Basophils % (auto) 0.7 % (0.0-2.0); Eosinophils # (auto) 0.1 10 ^3/uL (0-0.8); Eosinophils % (auto) 0.9 % (0.0-7.0); Hematocrit 36.5 % (36.0-46.0); Hemoglobin 11.8 g/dL (12.2-16.2); Lymphocytes # (auto) 1.7 10 ^3/uL (0.4-5.4); Lymphocytes % (auto) 21.6 % (10.0-50.0); Mean Corpuscular Hemoglobin 25.6 pg (28.0-32.0); Mean Corpuscular Hgb Conc. 32.4 g/dL (32.0-36.0); Monocytes # (auto) 0.6 10 ^3/uL (0-1.3); Monocytes % (auto) 7.6 % (0.0-12.0); Neutrophils # (auto) 5.4 10 ^3/uL (1.6-8.6); Neutrophils % (auto) 69.2 % (37.0-80.0); Nucleated Red Blood Cells % 0.1 %; Red Blood Cells 4.61 10^6/uL (4.0-5.20); Red Cell Distribution Width 16.7 % (11.8-14.3); White Blood Cell 7.8 10^3/uL (4.4-10.8)
[2022-06-02 07:56] LABS: Urine Bacteria NONE SEEN /hpf (None Seen); Urine Blood 1+ /uL (Negative); Urine Mucus FEW (None Seen); Urine Specific Gravity 1.015 (1.001-1.035); Urine WBC 1738 /hpf (0 - 5); Urine WBC Clumps PRESENT /hpf (None Seen)
[2022-06-02 08:27] LABS: Albumin 3.6 g/dL (3.4-5.0); Potassium 4.1 mmol/L (3.5-5.1)
[2022-06-02 08:30] LABS: BUN/Creatinine Ratio 18.9; Bilirubin, Total 0.4 mg/dL (0.2-1.0); Total Protein 7.2 g/dL (6.4-8.2)
== END | disposition home or self-care (01) ==
LOC: LAB 06:50
PROVIDERS: ATTEND Student in an Organized Health Care Education/Training Program
DX: E03.9 Hypothyroidism, unspecified (principal); D64.9 Anemia, unspecified; N30.90 Cystitis, unspecified without hematuria
CPT/HCPCS: 36415; 80053; 81001; 84443; 85025

== ENCOUNTER 2022-08-03 11:23 | Inpatient (IN) | payer OTHER ==
[~2022-08-03] VITALS: Ht 167.6 cm; Wt 68.3 kg
[2022-08-03 14:23] LABS: Urine Bacteria FEW /hpf (None Seen); Urine Blood TRACE /uL (Negative); Urine Budding Yeast FEW /hpf (None Seen); Urine Mucus FEW (None Seen); Urine Specific Gravity 1.013 (1.001-1.035); Urine WBC 672 /hpf (0 - 5)
[2022-08-03 14:33] LABS: Basophils # (auto) 0.1 10 ^3/uL (0-0.2); Basophils % (auto) 0.4 % (0.0-2.0); Eosinophils # (auto) 0 10 ^3/uL (0-0.8); Hematocrit 37.9 % (36.0-46.0); Hemoglobin 12.7 g/dL (12.2-16.2); Lymphocytes # (auto) 0.9 10 ^3/uL (0.4-5.4); Lymphocytes % (auto) 6.8 % (10.0-50.0); Mean Corpuscular Hemoglobin 26.2 pg (28.0-32.0); Mean Corpuscular Hgb Conc. 33.5 g/dL (32.0-36.0); Mean Corpuscular Volume 78.3 fL (80.0-100.0); Monocytes # (auto) 0.4 10 ^3/uL (0-1.3); Monocytes % (auto) 3.2 % (0.0-12.0); Neutrophils # (auto) 11.8 10 ^3/uL (1.6-8.6); Neutrophils % (auto) 89.6 % (37.0-80.0); Red Blood Cells 4.84 10^6/uL (4.0-5.20); Red Cell Distribution Width 16.1 % (11.8-14.3); White Blood Cell 13.2 10^3/uL (4.4-10.8)
[2022-08-03 15:02] LABS: Potassium 4.2 mmol/L (3.5-5.1)
[2022-08-03 15:10] LABS: Albumin 3.9 g/dL (3.4-5.0); BUN/Creatinine Ratio 17.3; Bilirubin, Total 0.4 mg/dL (0.2-1.0); Calcium 9.6 mg/dL (8.5-10.1); Total Protein 8.3 g/dL (6.4-8.2)
[2022-08-03] MEDS ORDERED: MORPHINE SULFATE 4 MG/ML SYR/VIAL IV ONE (15:15)
[2022-08-03] MEDS ORDERED: ONDANSETRON HCL 4 MG/2 ML VIAL IV ONE (15:15)
[2022-08-03] MEDS ORDERED: levoFLOXacin 500MG 100 ML IV ONE ×2 (15:30→16:49)
[2022-08-03] MEDS ORDERED: D5W/SOD CHL 0.45%/KCL 20MEQ 1,000 ML IV SCH (15:45)
[2022-08-03] MEDS ORDERED: MORPHINE SULFATE INJ 2 MG/ml SYRG IV PRN (15:45)
[2022-08-03] MEDS ORDERED: ONDANSETRON HCL 4 MG/2 ML VIAL IV PRN ×3 (15:45→18:15)
[2022-08-03] MEDS ORDERED: NITROGLYCERIN 0.4 MG SL TAB SL PRN (15:45)
[2022-08-03 15:50] LABS: INR 0.96 (0.9-1.15); Partial Thromboplastin Time 27.3 sec (24.6-33.4)
[2022-08-03] MEDS ORDERED: ROCURONIUM 10MG/ML 10ML VIAL IV ONE (16:57)
[2022-08-03] MEDS ORDERED: MIDAZOLAM HCL 2MG/2ML 2ml VIAL (1mg/ml) ONE (16:57)
[2022-08-03] MEDS ORDERED: fentaNYL CITRATE 100 MCG/2 ML VL ONE (16:57)
[2022-08-03] MEDS ORDERED: BUPIVACAINE 0.25% INJ 50ML VIAL IJ ONE (17:20)
[2022-08-03] MEDS ORDERED: HYDROmorphone HCL 2 MG/ML VL/or syr IV ONE (17:45)
[2022-08-03] MEDS ORDERED: PROPOFOL 10 MG/ML 20 ML IV ONE (17:47)
[2022-08-03] MEDS ORDERED: SUGAMMADEX 200mg/2ml Vial (100MG/ML) IV ONE (17:47)
[2022-08-03] MEDS ORDERED: ONDANSETRON HCL 4 MG/2 ML VIAL ONE (17:48)
[2022-08-03] MEDS ORDERED: ePHEDrine SULFATE 50 MG/ML AMP ONE (17:48)
[2022-08-03] MEDS ORDERED: HYDROmorphone HCL 2 MG/ML VL/or syr IV PRN (18:15)
[2022-08-03] MEDS: metroNIDAZOLE 500MG/100ML 100 ML IV SCH (22:13)
[2022-08-03] MEDS: D5W/SOD CHL 0.45%/KCL 20MEQ 1,000 ML IV SCH (23:50)
[2022-08-03 23:52] VITALS: BP 126/75
[2022-08-04 05:00] VITALS: BP 131/70
[2022-08-04 05:30] LABS: Calcium 8.4 mg/dL (8.5-10.1); Potassium 4.2 mmol/L (3.5-5.1)
[2022-08-04 05:33] LABS: BUN/Creatinine Ratio 19.4; Bilirubin, Total 0.5 mg/dL (0.2-1.0); Total Protein 6.3 g/dL (6.4-8.2)
[2022-08-04 05:34] LABS: Basophils # (auto) 0 10 ^3/uL (0-0.2); Basophils % (auto) 0.4 % (0.0-2.0); Eosinophils # (auto) 0 10 ^3/uL (0-0.8); Eosinophils % (auto) 0.2 % (0.0-7.0); Lymphocytes # (auto) 1.2 10 ^3/uL (0.4-5.4); White Blood Cell 8.4 10^3/uL (4.4-10.8)
[2022-08-04 05:37] LABS: Hemoglobin 11.4 g/dL (12.2-16.2); Lymphocytes % (auto) 13.9 % (10.0-50.0); Mean Corpuscular Hemoglobin 26.8 pg (28.0-32.0); Mean Corpuscular Hgb Conc. 34.6 g/dL (32.0-36.0); Mean Corpuscular Volume 77.4 fL (80.0-100.0); Monocytes # (auto) 0.7 10 ^3/uL (0-1.3); Monocytes % (auto) 7.8 % (0.0-12.0); Neutrophils # (auto) 6.5 10 ^3/uL (1.6-8.6); Neutrophils % (auto) 77.7 % (37.0-80.0); Red Blood Cells 4.27 10^6/uL (4.0-5.20)
[2022-08-04] MEDS: metroNIDAZOLE 500MG/100ML 100 ML IV SCH ×3 (05:46→21:47)
[2022-08-04] MEDS: D5W/SOD CHL 0.45%/KCL 20MEQ 1,000 ML IV SCH ×2 (07:05→20:25)
[2022-08-04 09:00] VITALS: BP 108/62
[2022-08-04] MEDS ORDERED: cefTRIAXone 1GM/50ML D5W 50 ML IV SCH (09:00)
[2022-08-04] MEDS ORDERED: GASTROGRAFIN 120 ML SOL ONE (09:11)
[2022-08-04] MEDS ORDERED: levoFLOXacin 500MG 100 ML IV SCH (10:00)
[2022-08-04] MEDS ORDERED: levoFLOXacin 250MG 50 ML IV SCH (10:00)
[2022-08-04] MEDS: PANTOPRAZOLE 40 MG/10 ML VIAL INJ IV SCH (11:11)
[2022-08-04 13:00] VITALS: BP 112/61
[2022-08-04 17:00] VITALS: BP 118/64
[2022-08-04 22:00] VITALS: BP 115/70
[2022-08-05 05:05] VITALS: BP 108/74
[2022-08-05] MEDS: metroNIDAZOLE 500MG/100ML 100 ML IV SCH ×2 (05:31→09:34)
[2022-08-05 07:28] LABS: Basophils # (auto) 0 10 ^3/uL (0-0.2); Basophils % (auto) 0.5 % (0.0-2.0); Eosinophils # (auto) 0.2 10 ^3/uL (0-0.8); Lymphocytes % (auto) 17.1 % (10.0-50.0)
[2022-08-05 07:29] LABS: Eosinophils % (auto) 2.1 % (0.0-7.0); Hematocrit 34.2 % (36.0-46.0); Hemoglobin 11.7 g/dL (12.2-16.2); Lymphocytes # (auto) 1.6 10 ^3/uL (0.4-5.4); Mean Corpuscular Hgb Conc. 34.3 g/dL (32.0-36.0); Mean Corpuscular Volume 78.9 fL (80.0-100.0); Monocytes # (auto) 0.6 10 ^3/uL (0-1.3); Neutrophils # (auto) 6.7 10 ^3/uL (1.6-8.6); Neutrophils % (auto) 73.3 % (37.0-80.0); Red Blood Cells 4.33 10^6/uL (4.0-5.20); White Blood Cell 9.2 10^3/uL (4.4-10.8)
[2022-08-05 07:57] LABS: Calcium 8.7 mg/dL (8.5-10.1); Potassium 4.1 mmol/L (3.5-5.1)
[2022-08-05 07:59] LABS: BUN/Creatinine Ratio 12.7
[2022-08-05 09:00] VITALS: BP 103/52
[2022-08-05] MEDS: PANTOPRAZOLE 40 MG/10 ML VIAL INJ IV SCH (09:33)
[2022-08-05] MEDS: D5W/SOD CHL 0.45%/KCL 20MEQ 1,000 ML IV SCH (09:34)
[2022-08-05 13:00] VITALS: BP 113/78
== END 2022-08-05 14:45 | disposition home or self-care (01) | DRG 354 ==
LOC: ER 11:23 → OVERFLOW 15:50 → CENTRAL 19:13
PROVIDERS: ADMIT Nurse Practitioner Acute Care; ATTEND Nurse Practitioner Acute Care
PROC: 0WQF0ZZ Repair Abdominal Wall, Open Approach (ICD-10-PCS; principal; 2022-08-03 17:05)
DX: K43.6 Other and unspecified ventral hernia with obstruction, without gangrene (principal); N39.0 Urinary tract infection, site not specified; D72.829 Elevated white blood cell count, unspecified; E03.9 Hypothyroidism, unspecified; E78.5 Hyperlipidemia, unspecified; K21.9 Gastro-esophageal reflux disease without esophagitis; Z82.49 Family history of ischemic heart disease and other diseases of the circulatory system; Z85.3 Personal history of malignant neoplasm of breast; Z90.49 Acquired absence of other specified parts of digestive tract; Z88.1 Allergy status to other antibiotic agents; Z88.0 Allergy status to penicillin; Z88.2 Allergy status to sulfonamides
CPT/HCPCS: 36415; 71045; 74176; 74250; 80048; 80053; 81001; 82150; 83690; 84443; 85025; 85610; 85730; 87426; 93306; C9113; G0378; J1956; J2250; J2405; J2704; J3490

== ENCOUNTER → 2023-05-24 | Outpatient (CLI) | payer OTHER ==
[~2023-05-24] MED LIST changes: -TRAM50TA2 PO
[2023-05-24 09:49] LABS: Basophils # (auto) 0 10 ^3/uL (0-0.2); Basophils % (auto) 0.5 % (0.0-2.0); Eosinophils # (auto) 0.1 10 ^3/uL (0-0.8); Hemoglobin 11.9 g/dL (12.2-16.2); Lymphocytes # (auto) 1.6 10 ^3/uL (0.4-5.4); Mean Corpuscular Hemoglobin 25.9 pg (28.0-32.0); Monocytes # (auto) 0.7 10 ^3/uL (0-1.3)
[2023-05-24 09:50] LABS: Eosinophils % (auto) 0.8 % (0.0-7.0); Lymphocytes % (auto) 19.3 % (10.0-50.0); Mean Corpuscular Hgb Conc. 33.1 g/dL (32.0-36.0); Mean Corpuscular Volume 78.3 fL (80.0-100.0); Monocytes % (auto) 7.7 % (0.0-12.0); Neutrophils # (auto) 6.1 10 ^3/uL (1.6-8.6); Neutrophils % (auto) 71.7 % (37.0-80.0); Nucleated Red Blood Cells % 0.1 %; Red Cell Distribution Width 16.9 % (11.8-14.3); White Blood Cell 8.5 10^3/uL (4.4-10.8)
[2023-05-24 10:28] LABS: Potassium 4.3 mmol/L (3.5-5.1)
[2023-05-24 11:48] LABS: BUN/Creatinine Ratio 13.4 (10.0-20.0); Calcium 8.9 mg/dL (8.5-10.1)
== END | disposition home or self-care (01) ==
LOC: LAB 09:16
PROVIDERS: ATTEND Student in an Organized Health Care Education/Training Program
DX: E03.9 Hypothyroidism, unspecified (principal); D64.9 Anemia, unspecified
CPT/HCPCS: 36415; 80048; 80061; 84443; 85025

== ENCOUNTER → 2023-08-26 | Outpatient (CLI) | payer OTHER | END | disposition home or self-care (01) | LOC: LAB 09:36 | PROVIDERS: ATTEND Student in an Organized Health Care Education/Training Program | DX: E03.9 Hypothyroidism, unspecified (principal) | CPT/HCPCS: 36415; 84443 ==

== ENCOUNTER 2023-09-11 14:29 | Emergency (ER) | payer OTHER ==
[~2023-09-11] VITALS: Ht 167.6 cm; Wt 63.3 kg
[2023-09-11 15:07] VITALS: BP 146/98; PULSE 101; RESP 19; O2SAT 96
[2023-09-11 19:02] LABS: COVID19 ANTIGEN SOFIA FIA POSITIVE (NEGATIVE)
[2023-09-11] MEDS ORDERED: BENZ100C97 PO (19:23)
[2023-09-11] MEDS ORDERED: NIRM1TAB PO (19:23)
== END 2023-09-11 20:22 | disposition home or self-care (01) ==
LOC: ER 14:29
DX: U07.1 COVID-19 (principal); K21.9 Gastro-esophageal reflux disease without esophagitis; E78.5 Hyperlipidemia, unspecified; Z90.49 Acquired absence of other specified parts of digestive tract; Z88.0 Allergy status to penicillin; Z88.2 Allergy status to sulfonamides
CPT/HCPCS: 36415; 71045; 87426

== ENCOUNTER → 2023-11-01 | Outpatient (CLI) | payer OTHER ==
[~2023-11-01] MED LIST changes: +BENZ100C97 PO; +NIRM1TAB PO
== END | disposition home or self-care (01) ==
LOC: LAB 12:53
PROVIDERS: ATTEND Student in an Organized Health Care Education/Training Program
DX: E03.9 Hypothyroidism, unspecified (principal)
CPT/HCPCS: 36415; 84443

== ENCOUNTER 2023-11-30 15:44 | Emergency (ER) | payer OTHER ==
[~2023-11-30] VITALS: Ht 167.6 cm; Wt 64.4 kg
[2023-11-30 16:09] VITALS: TEMP 96.5
[2023-11-30 16:17] VITALS: BP 167/79; PULSE 91; RESP 18; O2SAT 96
[2023-11-30] MEDS: cloNIDine HCL 0.1 MG TAB PO ONE (16:24)
== END 2023-11-30 19:39 | disposition left against medical advice (07) ==
LOC: ER 15:44
DX: I10 Essential (primary) hypertension (principal); Z53.21 Procedure and treatment not carried out due to patient leaving prior to being seen by health care provider

== ENCOUNTER → 2024-03-29 | Outpatient (CLI) | payer OTHER ==
[~2024-03-29] MED LIST changes: -NIRM1TAB PO; +NIRM1TAB8 PO
[2024-03-29 11:16] LABS: Urine Bacteria FEW /hpf (None Seen); Urine Blood TRACE /uL (Negative); Urine Clarity Turbid (Clear); Urine Color Colorless (Yellow); Urine Mucus FEW (None Seen); Urine Protein, UAD Negative (Negative); Urine Specific Gravity 1.009 (1.001-1.035); Urine Sperm PRESENT /hpf (None Seen); Urine Urobilinogen Normal (Negative); Urine WBC 414 /hpf (0 - 5); Urine WBC Clumps PRESENT /hpf (None Seen); Urine pH 6.5 (5.0-9.0)
== END | disposition home or self-care (01) ==
LOC: LAB 06:20
PROVIDERS: ATTEND Urology
DX: R30.0 Dysuria (principal)
CPT/HCPCS: 81001; 87086

== ENCOUNTER → 2024-04-25 | Outpatient (CLI) | payer OTHER ==
[2024-04-25 08:38] LABS: Basophils # (auto) 0 10 ^3/uL (0-0.2); Basophils % (auto) 0.7 % (0.0-2.0); Eosinophils # (auto) 0.1 10 ^3/uL (0-0.8); Eosinophils % (auto) 1.1 % (0.0-7.0); Hematocrit 39.4 % (36.0-46.0); Hemoglobin 13.6 g/dL (12.2-16.2); Lymphocytes # (auto) 1.4 10 ^3/uL (0.4-5.4); Lymphocytes % (auto) 23.7 % (10.0-50.0); Mean Corpuscular Hemoglobin 27.9 pg (28.0-32.0); Mean Corpuscular Hgb Conc. 34.5 g/dL (32.0-36.0); Mean Corpuscular Volume 80.9 fL (80.0-100.0); Monocytes # (auto) 0.5 10 ^3/uL (0-1.3); Monocytes % (auto) 8.4 % (0.0-12.0); Neutrophils % (auto) 66.1 % (37.0-80.0); Red Blood Cells 4.88 10^6/uL (4.0-5.20); Red Cell Distribution Width 15.9 % (11.8-14.3); White Blood Cell 6.1 10^3/uL (4.4-10.8)
[2024-04-25 09:07] LABS: Creatinine, Urine 48.17 mg/dL (30.0-125.0)
[2024-04-25 09:11] LABS: Alanine Aminotransferase 12 U/L (7-40); Albumin 4.5 g/dL (3.2-4.8); Alkaline Phosphatase 92 U/L (46-116); Anion Gap 7 (5-15); Aspartate Aminotransferase 12 U/L (13-40); BUN/Creatinine Ratio 13.4 (10.0-20.0); Blood Urea Nitrogen 11 mg/dL (9-23); Carbon Dioxide 27 mmol/L (20-30); Chloride 107 mmol/L (98-107); Glucose 98 mg/dL (74-106); Potassium 4.4 mmol/L (3.5-5.1); Sodium 141 mmol/L (136-145); Total Protein 7.2 g/dL (5.7-8.2)
[2024-04-25 09:23] LABS: Bilirubin, Total 0.6 mg/dL (0.2-1.0)
== END | disposition home or self-care (01) ==
LOC: LAB 08:23
PROVIDERS: ATTEND Internal Medicine
DX: Z00.01 Encounter for general adult medical examination with abnormal findings (principal); D50.8 Other iron deficiency anemias; E03.9 Hypothyroidism, unspecified; I10 Essential (primary) hypertension; R73.03 Prediabetes; Z79.899 Other long term (current) drug therapy
CPT/HCPCS: 36415; 80053; 82043; 82306; 82570; 82607; 83036; 84443; 85025

== ENCOUNTER → 2024-09-18 | Outpatient (CLI) | payer OTHER ==
[2024-09-18 08:29] LABS: Triglycerides 109 mg/dL (< 150)
[2024-09-18 08:31] LABS: Cholesterol 189 mg/dL (< 200); HDL Cholesterol 52 mg/dL (40-59)
[2024-09-18 08:32] LABS: LDL Cholesterol 118 mg/dL (< 100)
== END | disposition home or self-care (01) ==
LOC: LAB 07:27
PROVIDERS: ATTEND Internal Medicine
DX: D64.9 Anemia, unspecified (principal); R73.03 Prediabetes; R80.9 Proteinuria, unspecified; E78.5 Hyperlipidemia, unspecified
CPT/HCPCS: 36415; 80061; 83036; 84443

== ENCOUNTER → 2025-01-17 | Outpatient (CLI) | payer OTHER ==
[2025-01-17 07:55] LABS: Alanine Aminotransferase 15 U/L (7-40); Albumin 4.5 g/dL (3.2-4.8); Alkaline Phosphatase 91 U/L (46-116); Anion Gap 9 (5-15); Aspartate Aminotransferase 19 U/L (13-40); BUN/Creatinine Ratio 17.4 (10.0-20.0); Blood Urea Nitrogen 15 mg/dL (9-23); Calcium 10.2 mg/dL (8.7-10.4); Carbon Dioxide 26 mmol/L (20-31); Chloride 104 mmol/L (98-107); Glucose 99 mg/dL (74-106); Potassium 4.1 mmol/L (3.5-5.1); Sodium 139 mmol/L (136-145); Total Protein 7.6 g/dL (5.7-8.2)
[2025-01-17 07:56] LABS: Bilirubin, Total 0.6 mg/dL (0.2-1.0)
== END | disposition home or self-care (01) ==
LOC: LAB 06:45
PROVIDERS: ATTEND Internal Medicine
DX: E03.9 Hypothyroidism, unspecified (principal); R73.03 Prediabetes
CPT/HCPCS: 36415; 80053; 84443

== ENCOUNTER 2025-03-11 11:56 | Inpatient (IN) | payer OTHER ==
[~2025-03-11] VITALS: Ht 167.6 cm; Wt 65.0 kg
--- NOTE | 2025-03-11 15:26 | ED.PDOC ---
HPI Comments A 89-year-old female with a past medical history of GERD, thyroid disease, hyperlipidemia presents to the emergency department with a chief complaint of nose pain s/p fall onset today (03/11/25) around 11:30. Patient states she was stepping on a curb,was going to get inside vehicle when she fell forward, immediately after began experiencing nosebleed. Patient states she did not experience LOC but does not recall how she fell. Fall was witnessed by patient's cousin. Upon ED arrival bleeding was controlled. She is currently experiencing nose pain, headache, neck pain radiating to bilateral shoulders, RT knee pain. No other symptoms or modifying factors present at this time. Denies fever, chills, night sweats Denies persistent nausea Denies vomiting Denies thunderclap headache Denies photophobia, phonophobia Denies family history of brain issues persistent headaches Denies taking any blood thinner medication Denies vision/hearing changes Denies focal loss of strength/sensation or changes in speech Denies LOC Chief Complaint: Abrasion Time Seen by MD: 14:55 Primary Care Provider: Juan DONALD Reviewed Notes: Medications, Allergies Allergies: Coded Allergies: Penicillins (Verified Allergy, Unknown, 08/03/22) Sulfa Drugs (Verified Allergy, Unknown, 08/03/22) Home Meds Active Scripts Ciprofloxacin Hcl (Ciprofloxacin Hcl) 500 Mg Tab, 1 TAB PO BID for 7 Days, #14 TAB Prov:FRIDA BAKER MD 03/13/25 Reported Medications Folic Acid (Folic Acid) 1 Mg Tab, 1 TAB PO DAILY 03/12/25 Pantoprazole Sodium Sesquihydr (Pantoprazole Sodium) 40 Mg Tab, 1 TAB PO DAILY 03/12/25 Levothyroxine Sodium (Levothyroxine Sodium) 25 Mcg Tab, 25 MCG PO QAM, MCG 07/13/18 Discontinued Reported Medications Albuterol Sulfate (Albuterol Sulfate Hfa) 108 Mcg/Act Aer, 108 MCG IN Q4HP PRN for SHORTNESS OF BREATH, AER 04/10/20 Information Source: Patient Mode of Arrival: Ambulatory Severity: Moderate Severity of Laceration: Controlled Bleeding Complexity: Simple Timing: Hours Prehospital treatment: None Laceration Location: Chin, Nose, Mouth Mechanism: Fall Laceration Length (cm): 1 Depth of Injury: Skin Tendon Injury: 0% Tender: Moderate Associated Signs and Symptoms: Headache Past Medical History PAST MEDICAL HISTORY: GERD, High Lipids, Thyroid Surgical History: Cholecystectomy FOUNDRY MOLDER History: Unknown Family History Family History: Unknown, Family hx of HTN Social History Smoker: Non-Smoker Alcohol: Denies ETOH Use Drugs: Denies Drug Use Lives In: Home All Other Systems: Reviewed and Negative (as per HPI) Physical Exam General Appearance: No Apparent Distress, Normal HEENT: Head (normocephalic, atraumatic ) Neck: Full Range of Motion, Non-Tender, Supple, Other (neck supple, no midline tenderness) Respiratory: Chest Non-Tender, Lungs Clear, No Accessory Muscle Use, No Respiratory Distress, Normal Breath Sounds Cardiovascular: No Edema, No JVD, No Murmur, No Gallop, Normal Peripheral Pulses, Regular Rate/Rhythm Breast Exam: Deferred Gastrointestinal: No Organomegaly, Non Tender, No Pulsatile Mass, Normal Bowel Sounds, Soft Genitalia: Deferred Pelvic: Deferred Rectal: Deferred Extremities: No calf tenderness, Normal capillary refill, No pedal edema Musculoskeletal : Apperance: Normal Neurologic: Alert, music video director II-XII nml as Tested, No Motor Deficits, Normal Affect, Normal Mood, No Sensory Deficits Cerebellar Function: Normal Reflexes: Normal Skin: Dry, Other (scattered abrasion noted to nose, 1 cm vertical abrasion to b rdige of nose.) Lymphatic: No Adenopathy Was a procedure done? Was a procedure done?: No Differential diagnosis Generic Laceration: Abrasion/Contusion, Laceration, Avulsion X-Ray, Labs, Meds, VS Vital Signs Date Time Temp Pulse Resp B/P (MAP) Pulse Ox O2 Delivery O2 Flow Rate FiO2 03/11/25 19:00 97.2 72 20 150/89 (109) 96 97.2 03/11/25 17:19 18 98 Room Air* 0 21 03/11/25 17:11 97.7 78 20 170/86 (114) 95 97.7 03/11/25 14:35 98.1 86 17 155/85 (108) 96 98.1 03/11/25 14:35 86 17 96 Room Air 03/11/25 12:20 98.1 86 17 155/85 (108) 96 98.1 Lab Test 03/11/25 15:50 03/11/25 15:00 Range/Units White Blood Count 8.9 4.4-10.8 10^3/uL Red Blood Count 5.13 4.0-5.20 10^6/uL Hemoglobin 13.9 12.2-16.2 g/dL Hematocrit 41.6 36.0-46.0 % Mean Corpuscular Volume 81.0 80.0-100.0 fL Mean Corpuscular Hemoglobin 27.0 L 28.0-32.0 pg Mean Corpuscular Hemoglobin Concent 33.4 32.0-36.0 g/dL Red Cell Distribution Width 15.8 H 11.8-14.3 % Platelet Count 216 140-450 10^3/uL Mean Platelet Volume 8.1 6.9-10.8 fL Neutrophils (%) (Auto) 84.6 H 37.0-80.0 % Lymphocytes (%) (Auto) 10.5 10.0-50.0 % Monocytes (%) (Auto) 4.5 0.0-12.0 % Eosinophils (%) (Auto) 0.1 0.0-7.0 % Basophils (%) (Auto) 0.3 0.0-2.0 % Neutrophils # (Auto) 7.5 1.6-8.6 10 ^3/uL Lymphocytes # (Auto) 0.9 0.4-5.4 10 ^3/uL Monocytes # (Auto) 0.4 0-1.3 10 ^3/uL Eosinophils # (Auto) 0 0-0.8 10 ^3/uL Basophils # (Auto) 0 0-0.2 10 ^3/uL Nucleated Red Blood Cells 0.0 % Sodium Level 140 136-145 mmol/L Potassium Level 4.4 3.5-5.1 mmol/L Chloride Level 107 98-107 mmol/L Carbon Dioxide Level 26 20-31 mmol/L Anion Gap 7 5-15 Blood Urea Nitrogen 16 9-23 mg/dL Creatinine 0.85 0.550-1.02 mg/dL Glomerular Filtration Rate Calc 66 >90 mL/min BUN/Creatinine Ratio 18.8 10.0-20.0 Serum Glucose 100 74-106 mg/dL Calcium Level 10.3 8.7-10.4 mg/dL Troponin I High Sensitivity 6 </=34 ng/L Thyroid Stimulating Hormone (TSH) 0.68 0.55-4.78 uIU/mL Urine Color Colorless Yellow Urine Clarity Turbid H Clear Urine pH 6.0 5.0-9.0 Urine Specific [place] 1.008 1.001-1.035 Urine Protein Negative Negative Urine Ketones Negative Negative Urine Blood Negative Negative /uL Urine Nitrite Negative Negative Urine Bilirubin Negative Negative Urine Urobilinogen Normal Negative mg/dL Urine Leukocyte Esterase 3+ Negative /uL Urine RBC 3 0 - 4 /hpf Urine WBC Clumps Present None Seen /hpf Urine Microscopic WBC 310 H 0-5 /HPF Urine Squamous Epithelial Cells Few <5 /hpf Urine Bacteria Few H None Seen /hpf Urine Hyaline Casts Few 0 - 2 /lpf Urine Mucus Few None Seen Urine Glucose Normal Normal mg/dL Microbiology Date/Time Source Procedure Growth Status 03/11/25 15:00 Voided Urine Urine Culture - Preliminary Resulted DIAGNOSTIC IMAGING Diagnostic Imaging Report : [id number] Signed PATIENT: VERA PANTOJA AACCT: [id number] UNIT: [id number] : 1935 LOC: ER ROOM / BED: / AGE / SEX: 89 / F ADM STATUS: REG ER SERVICE 1458 ORDERING PHYSICIAN: JESSENIA CORDOVA NP PROCEDURE(s): CS2 - CERVICAL WITHOUT CONTRAST REASON: fall ORDER NUMBER(s): [id number], ACCESSION NUMBER(s): [id number] Indication: fall Technique: CT axial images of the cervical spine are obtained without contrast. Coronal and sagittal reformats were obtained. Comparison: None FINDINGS: The cervical vertebral body heights are maintained. Cervical alignment is maintained. There is advanced multilevel disc space narrowing. No prevertebral edema. Facet articulations demonstrate moderate facet hypertrophic changes . The atlantooccipital, atlantoaxial articulations are intact. Heterogeneous thyroid gland with nodules IMPRESSION: 1. 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 Heterogeneous thyroid gland with nodules. Recommend thyroid ultrasound in the nonemergent setting to further characterize. ATED BY: DIYA MATUTE MD DICTATED DATE/TIME: 03/11/25 1544 SIGNED BY: DIYA MATUTE MD SIGNED DATE/TIME: 03/11/25 154 CC: DIAGNOSTIC IMAGING Diagnostic Imaging Report : [id number] Signed PATIENT: VERA PANTOJA ACCT: [id number] UNIT: [id number] : 1935 LOC: ER ROOM / BED: / AGE / SEX: 89 / F ADM STATUS: REG ER SERVICE 1458 ORDERING PHYSICIAN: JESSENIA CORDOVA NP PROCEDURE(s): HWOCT - HEAD WITHOUT CONTRAST REASON: fall ORDER NUMBER(s): [id number], ACCESSION NUMBER(s): [id number] EXAM: CT HEAD WITHOUT CONTRAST INDICATION: fall TECHNIQUE: CT of the head without intravenous contrast. Radiation Dose Information: CT Dose: CTDI volume is 25 mGy. Dose-length product is 250 mGy*cm The dose indicators for CT are the volume Computed Tomography (CT) Dose Index (CTDIvol) and the Dose Length Product (DLP), and are measured in units of mGy and mGy-cm, respectively. These indicators are not patient dose, but values generated from the CT scanner acquisition factors. The report includes radiation exposure data for exposures received during this examination. COMPARISON: None FINDINGS: There is no evidence of acute intracranial hemorrhage, extra-axial collection, mass effect, midline shift, herniation or hydrocephalus. The ventricles, sulci and cisterns are age appropriate. The nobles-white differentiation is intact. Patchy periventricular and subcortical white matter hypoattenuation is nonspecific but may be related to small vessel ischemic disease. The visualized paranasal sinuses and mastoid air cells are clear. The surrounding soft tissues and osseous structures are unremarkable. IMPRESSION: No acute intracranial abnormality. ATED BY: DIAMOND BRADLEY MD DICTATED DATE/TIME: 03/11/25 1530 SIGNED BY: DIAMOND BRADLEY MD SIGNED DATE/TIME: 03/11/25 1530 CC: DIAGNOSTIC IMAGING Diagnostic Imaging Report : [id number] Signed PATIENT: VERA PANTOJA ACCT: [id number] UNIT: [id number] : 1935 LOC: ER ROOM / BED: / AGE / SEX: 89 / F ADM STATUS: REG ER SERVICE 1458 ORDERING PHYSICIAN: JESSENIA CORDOVA NP PROCEDURE(s): FAC2C - MAXILLOFACIAL WITHOUT REASON: fall ORDER NUMBER(s): [id number], ACCESSION NUMBER(s): [id number] CT maxillofacial HISTORY: fall TECHNIQUE: Serial axial images were performed through the facial bones and reformatted in sagittal and coronal planes. FINDINGS:On axial images no fractures of the mandible, zygomatic arches, orbital lateral or medial orbital salcido. On sagittal images no fractures of the anterior maxillary spine .There is a fracture of the left nasal bone. No fractures of the anterior posterior salcido of the paranasal sinuses On coronal images no fractures of the superior or inferior salcido of the orbits. The temporomandibular joints are symmetrically aligned. On soft tissue windows no soft tissue injury is present.. IMPRESSION: 1. Fracture left nasal bone. Computed Tomographic Radiation Dosimetry Report: Total CTDI vol = 63 mGy Total DLP = 1275 mGy-cm All CT scans at this medical facility are performed using dose modulation techniques as appropriate to a performed exam including the following: Automated exposure control was utilized; adjustment of the MA and/or KvP according to patient size; and use of iterative reconstruction technique. ATED BY: PEPITO CARDONA MD DICTATED DATE/TIME: 03/11/25 1539 SIGNED BY: PEPITO CARDONA MD SIGNED DATE/TIME: 03/11/25 1539 CC: X-Ray, Labs, Meds, VS Comment A 89-year-old female with a past medical history of GERD, thyroid disease, hyperlipidemia presents to the emergency department with a chief complaint of nose pain s/p fall onset today (03/11/25) around 11:30. Denies syncopal episode but unsure how patient fell Patient arrives alert and oriented, ABC's intact, afebrile, vital signs stable, saturating well in room air Peripheral IV insertion+ labs were ordered. CBC was ordered to exclude anemia, blood loss, or infection. BMP was ordered to exclude electrolyte abnormalities, renal failure, dehydration, hyperglycemia Urinalysis was ordered to rule out UTI or hematuria. Diagnostic imaging ordered by me and results interpreted by radiology : CT CERVICAL WITHOUT CONTRAST, CT MAXILLOFACIAL WITHOUT CONTRAST, CT HEAD WITH OUT CONTRAST Maxillofacial CT results showed 1. Fracture left nasal bone. UA WBC: 310 The patient presents with s/s consistent with UTI, mechanical fall, nasal fracture Based on the patient's age, risk factors, recent fall,the patient's workup reveals that the patient needs further evaluation and/or treatment for the above medical conditions. Patient verbalized understanding of the above and is awaiting further evaluation by the admitting service. Will benefit from IV ABx and further evaluation from the recent fall. Time of 1ST Reevaluation: 15:25 Reevaluation 1ST: Improved Patient Education/Counseling: Diagnosis, Treatment Family Education/Counseling: No Family Present Departure 1 Departure Time of Disposition: 16:40 Impression: Primary Impression: Fall Qualified Codes: W19.XXXA - Unspecified fall, initial encounter Additional Impressions: Nasal fracture Qualified Codes: S02.2XXA - Fracture of nasal bones, initial encounter for closed fracture UTI (urinary tract infection) Qualified Codes: N30.00 - Acute cystitis without hematuria Disposition: ADMITTED INPATIENT Condition: Fair e-Prescriptions Ciprofloxacin Hcl (Ciprofloxacin Hcl) 500 Mg Tab 1 TAB PO BID for 7 Days, #14 TAB Prov: FRIDA BAKER MD 03/13/25 Critical Care Note Critical Care Time?: No Stability Stability form required: No Heart Score Heart Score: Heart Score Response (Comments) Value History Slightly Suspicious 0 EKG Normal 0 Age >65 2 Risk Factors 1 or 2 risk factors 1 Troponin Normal limit 0 Total 3 I personally scribed for JESSENIA CORDOVA [employer]ESPERSON [employer] ([email or web address]) on 03/11/25 at 15:26. Electronically submitted by Laura Lagunas ([email or web address]). I personally scribed for JESSENIA CORDOVA [employer] ([email or web address]) on 03/11/25 at 16:23. Electronically submitted by Laura Lagunas ([email or web address]). I personally scribed for JESSENIA CORDOVA [employer]ESPERSON [employer] ([email or web address]) on 03/11/25 at 16:26. Electronically submitted by Laura Lagunas ([email or web address]). JESSENIA CORDOVA [employer]ESPERSON [employer] Mar 11, 2025 15:26
--- NOTE | 2025-03-11 15:33 | DVH ---
EXAM: CT HEAD WITHOUT CONTRAST INDICATION: fall TECHNIQUE: CT of the head without intravenous contrast. Radiation Dose Information: CT Dose: CTDI volume is 25 mGy. Dose-length product is 250 mGy*cm The dose indicators for CT are the volume Computed Tomography (CT) Dose Index (CTDIvol) and the Dose Length Product (DLP), and are measured in units of mGy and mGy-cm, respectively. These indicators are not patient dose, but values generated from the CT scanner acquisition factors. The report includes radiation exposure data for exposures received during this examination. COMPARISON: None FINDINGS: There is no evidence of acute intracranial hemorrhage, extra-axial collection, mass effect, midline s hift, herniation or hydrocephalus. The ventricles, sulci and cisterns are age appropriate. The nobles-white differentiation is intact. Patchy periventricular and subcortical white matter hypoattenuation is nonspecific but may be related to small vessel ischemic disease. The visualized paranasal sinuses and mastoid air cells are clear. The surrounding soft tissues and osseous structures are unremarkable. IMPRESSION: No acute intracranial abnormality.
--- NOTE | 2025-03-11 15:41 | DVH ---
CT maxillofacial HISTORY: fall TECHNIQUE: Serial axial images were performed through the facial bones and reformatted in sagittal an d coronal planes. FINDINGS:On axial images no fractures of the mandible, zygomatic arches, orbital lateral or medial or bital salcido. On sagittal images no fractures of the anterior maxillary spine .There is a fracture of the left nasa l bone. No fractures of the anterior posterior salcido of the paranasal sinuses On coronal images no fractures of the superior or inferior salcido of the orbits. The temporomandibular joints are symmetrically aligned. On soft tissue windows no soft tissue injury is present.. IMPRESSION: 1. Fracture left nasal bone. Computed Tomographic Radiation Dosimetry Report: Total CTDI vol = 63 mGy Total DLP = 1275 mGy-cm All CT scans at this medical facility are performed using dose modulation techniques as appropriate t o a performed exam including the following: Automated exposure control was utilized; adjustment of the MA and/or KvP according to patient size; a nd use of iterative reconstruction technique.
--- NOTE | 2025-03-11 15:47 | DVH ---
Indication: fall Technique: CT axial images of the cervical spine are obtained without contrast. Coronal and sagittal reformats were obtained. Comparison: None FINDINGS: The cervical vertebral body heights are maintained. Cervical alignment is maintained. There is advan jane multilevel disc space narrowing. No prevertebral edema. Facet articulations demonstrate moderate facet hypertrophic changes . The atlantooccipital, atlantoaxial articulations are intact. Heterogeneo us thyroid gland with nodules IMPRESSION: 1. 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 Heterogeneous thyroid gland with nodules. Recommend thyroid ultrasound in the nonemergent setting to further characterize.
[2025-03-11 16:05] LABS: Basophils # (auto) 0 10 ^3/uL (0-0.2); Basophils % (auto) 0.3 % (0.0-2.0); Eosinophils # (auto) 0 10 ^3/uL (0-0.8); Eosinophils % (auto) 0.1 % (0.0-7.0); Hematocrit 41.6 % (36.0-46.0); Hemoglobin 13.9 g/dL (12.2-16.2); Lymphocytes # (auto) 0.9 10 ^3/uL (0.4-5.4); Lymphocytes % (auto) 10.5 % (10.0-50.0); Mean Corpuscular Hgb Conc. 33.4 g/dL (32.0-36.0); Monocytes # (auto) 0.4 10 ^3/uL (0-1.3); Monocytes % (auto) 4.5 % (0.0-12.0); Neutrophils # (auto) 7.5 10 ^3/uL (1.6-8.6); Neutrophils % (auto) 84.6 % (37.0-80.0); Platelet Count (auto) 216 10^3/uL (140-450); Red Blood Cells 5.13 10^6/uL (4.0-5.20); Red Cell Distribution Width 15.8 % (11.8-14.3); White Blood Cell 8.9 10^3/uL (4.4-10.8)
[2025-03-11 16:11] LABS: Chloride 107 mmol/L (98-107); Potassium 4.4 mmol/L (3.5-5.1); Sodium 140 mmol/L (136-145)
[2025-03-11 16:12] LABS: Anion Gap 7 (5-15); Carbon Dioxide 26 mmol/L (20-31)
[2025-03-11 16:13] LABS: Calcium 10.3 mg/dL (8.7-10.4)
[2025-03-11 16:17] LABS: BUN/Creatinine Ratio 18.8 (10.0-20.0); Blood Urea Nitrogen 16 mg/dL (9-23); Glucose 100 mg/dL (74-106)
[2025-03-11 16:20] LABS: Urine Bacteria FEW /hpf (None Seen); Urine Blood Negative /uL (Negative); Urine Clarity Turbid (Clear); Urine Color Colorless (Yellow); Urine Hyaline Cast FEW /lpf (0 - 2); Urine Mucus FEW (None Seen); Urine Protein, UAD Negative (Negative); Urine Specific Gravity 1.008 (1.001-1.035); Urine Squamous Epithelial Cell FEW /hpf (<5); Urine Urobilinogen Normal (Negative); Urine WBC 310 /HPF (0-5); Urine WBC Clumps PRESENT /hpf (None Seen)
[2025-03-11] MEDS: cefTRIAXone 1GM/50ML D5W 50 ML IV ONE (17:17)
[2025-03-11 17:19] VITALS: RESP 18; O2SAT 98
[2025-03-11] MEDS ORDERED: ONDANSETRON HCL 4 MG/2 ML VIAL IV PRN (19:45)
[2025-03-11] MEDS ORDERED: HYDROcodone-ACET 5/325MG TAB PO PRN (19:45)
[2025-03-11] MEDS: LOSARTAN POTASSIUM 25 MG TAB PO ONE (21:04)
[2025-03-11 21:31] VITALS: BP 162/87; PULSE 72; RESP 16; RESP 18; TEMP 97.9; O2SAT 97
[2025-03-11] MEDS: ACETAMINOPHEN 325 MG TAB PO PRN (21:58)
[2025-03-12] VITALS (8 sets, daily range): BP systolic 116–141; BP diastolic 62–74; PULSE 63–73; RESP 17–19; TEMP 97.6–98.1; O2SAT 93–98
[2025-03-12] MEDS ORDERED: PANT40T PO (00:23)
[2025-03-12] MEDS ORDERED: FOLI-119 PO (00:23)
--- NOTE | 2025-03-12 03:44 | DVHHP2 ---
History of Present Illness Reason for Visit: Fall injury History of Present Illness 89-year-old female presents for evaluation for fall injury. Patient reports losing her balance while stepping off a curb and falling hitting her face. She presents with a nosebleed. Denies loss of consciousness. Denies abdominal pain, nausea and vomiting. Patient does report recurrent urinary tract infections. No other acute complaints reported. Past Medical History Dyslipidemia, thyroid, GERD Past Surgical History Cholecystectomy Family History Noncontributory Smoke: No ALCOHOL: none Drugs: None Lives: with Family Review of Systems Review of Systems Review of systems are currently negative otherwise addressed in HPI. Allergies: Coded Allergies: Penicillins (Verified Allergy, Unknown, 08/03/22) Sulfa Drugs (Verified Allergy, Unknown, 08/03/22) Medications Current Medications Medications Dose Ordered Sig/Marisa Route Start Time Stop Time Status Last Admin Dose Admin Ceftriaxone Sodium 50 ml @ 100 mls/hr DAILY@09 IV 03/12/25 09:00 Pantoprazole Sodium 40 mg DAILY@0600 PO 03/12/25 06:00 Levothyroxine Sodium 75 mcg QAM@0600 PO 03/12/25 06:00 Losartan Potassium 25 mg DAILY PO 03/12/25 10:00 Acetaminophen/ Hydrocodone Bitart 1 tab Q4HP PRN PO 03/11/25 19:45 Ondansetron HCl 4 mg Q4HP PRN IV 03/11/25 19:45 Acetaminophen 650 mg Q6HP PRN PO 03/11/25 19:45 03/11/25 21:58 650 MG Exam Vital Signs Vital Signs Date Time Temp Pulse Resp B/P (MAP) Pulse Ox O2 Delivery O2 Flow Rate FiO2 03/12/25 01:00 97.6 68 18 129/72 (91) 96 97.6 03/11/25 21:31 Room Air* 0 21 Exam Gen: 89-year-old female in mild distress Skin: Warm, dry, normal color and texture, no rash. HEENT: Ecchymosis on nares, mucous membranes moist and pink. Neck: Cervical and supraclavicular nodes normal without enlargement, trachea is midline, thyroid gland is normal without masses. Pulmonary: Clear to auscultation and percussion bilaterally. Cardiac: Regular rate and rhythm. No murmur Abdomen: Soft, nontender, nondistended, bowel sounds present all 4 quadrants, no guarding, no rigidity, no organomegaly. Extremities: No cyanosis, clubbing, no edema Neuro: Cranial nerves II through XII grossly intact, normal affect and speech, no focal motor deficits. Labs/Xrays ORDERING PHYSICIAN: JESSENIA CORDOVA NP PROCEDURE(s): CS2 - CERVICAL WITHOUT CONTRAST REASON: fall ORDER NUMBER(s): [id number], ACCESSION NUMBER(s): [id number] Indication: fall Technique: CT axial images of the cervical spine are obtained without contrast. Coronal and sagittal reformats were obtained. Comparison: None FINDINGS: The cervical vertebral body heights are maintained. Cervical alignment is maintained. There is advanced multilevel disc space narrowing. No prevertebral edema. Facet articulations demonstrate moderate facet hypertrophic changes . The atlantooccipital, atlantoaxial articulations are intact. Heterogeneous thyroid gland with nodules IMPRESSION: 1. 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 Heterogeneous thyroid gland with nodules. Recommend thyroid ultrasound in the nonemergent setting to further characterize. ATED BY: DIYA MATUTE MD DICTATED DATE/TIME: 03/11/25 1544 ORDERING PHYSICIAN: JESSENIA CORDOVA NP PROCEDURE(s): HWOCT - HEAD WITHOUT CONTRAST REASON: fall ORDER NUMBER(s): [id number], ACCESSION NUMBER(s): [id number] EXAM: CT HEAD WITHOUT CONTRAST INDICATION: fall TECHNIQUE: CT of the head without intravenous contrast. Radiation Dose Information: CT Dose: CTDI volume is 25 mGy. Dose-length product is 250 mGy*cm The dose indicators for CT are the volume Computed Tomography (CT) Dose Index (CTDIvol) and the Dose Length Product (DLP), and are measured in units of mGy and mGy-cm, respectively. These indicators are not patient dose, but values generated from the CT scanner acquisition factors. The report includes radiation exposure data for exposures received during this examination. COMPARISON: None FINDINGS: There is no evidence of acute intracranial hemorrhage, extra-axial collection, mass effect, midline shift, herniation or hydrocephalus. The ventricles, sulci and cisterns are age appropriate. The nobles-white differentiation is intact. Patchy periventricular and subcortical white matter hypoattenuation is nonspecific but may be related to small vessel ischemic disease. The visualized paranasal sinuses and mastoid air cells are clear. The surrounding soft tissues and osseous structures are unremarkable. IMPRESSION: No acute intracranial abnormality. RING PHYSICIAN: JESSENIA CORDOVA NP PROCEDURE(s): FAC2C - MAXILLOFACIAL WITHOUT REASON: fall ORDER NUMBER(s): [id number], ACCESSION NUMBER(s): [id number] CT maxillofacial HISTORY: fall TECHNIQUE: Serial axial images were performed through the facial bones and reformatted in sagittal and coronal planes. FINDINGS:On axial images no fractures of the mandible, zygomatic arches, orbital lateral or medial orbital salcido. On sagittal images no fractures of the anterior maxillary spine .There is a fracture of the left nasal bone. No fractures of the anterior posterior salcido of the paranasal sinuses On coronal images no fractures of the superior or inferior salcido of the orbits. The temporomandibular joints are symmetrically aligned. On soft tissue windows no soft tissue injury is present.. IMPRESSION: 1. Fracture left nasal bone. Computed Tomographic Radiation Dosimetry Report: Total CTDI vol = 63 mGy Total DLP = 1275 mGy-cm All CT scans at this medical facility are performed using dose modulation techniques as appropriate to a performed exam including the following: Automated exposure control was utilized; adjustment of the MA and/or KvP according to patient size; and use of iterative reconstruction technique. Labs Test 03/11/25 15:50 03/11/25 15:00 Range/Units White Blood Count 8.9 4.4-10.8 10^3/uL Red Blood Count 5.13 4.0-5.20 10^6/uL Hemoglobin 13.9 12.2-16.2 g/dL Hematocrit 41.6 36.0-46.0 % Mean Corpuscular Volume 81.0 80.0-100.0 fL Mean Corpuscular Hemoglobin 27.0 L 28.0-32.0 pg Mean Corpuscular Hemoglobin Concent 33.4 32.0-36.0 g/dL Red Cell Distribution Width 15.8 H 11.8-14.3 % Platelet Count 216 140-450 10^3/uL Mean Platelet Volume 8.1 6.9-10.8 fL Neutrophils (%) (Auto) 84.6 H 37.0-80.0 % Lymphocytes (%) (Auto) 10.5 10.0-50.0 % Monocytes (%) (Auto) 4.5 0.0-12.0 % Eosinophils (%) (Auto) 0.1 0.0-7.0 % Basophils (%) (Auto) 0.3 0.0-2.0 % Neutrophils # (Auto) 7.5 1.6-8.6 10 ^3/uL Lymphocytes # (Auto) 0.9 0.4-5.4 10 ^3/uL Monocytes # (Auto) 0.4 0-1.3 10 ^3/uL Eosinophils # (Auto) 0 0-0.8 10 ^3/uL Basophils # (Auto) 0 0-0.2 10 ^3/uL Nucleated Red Blood Cells 0.0 % Sodium Level 140 136-145 mmol/L Potassium Level 4.4 3.5-5.1 mmol/L Chloride Level 107 98-107 mmol/L Carbon Dioxide Level 26 20-31 mmol/L Anion Gap 7 5-15 Blood Urea Nitrogen 16 9-23 mg/dL Creatinine 0.85 0.550-1.02 mg/dL Glomerular Filtration Rate Calc 66 >90 mL/min BUN/Creatinine Ratio 18.8 10.0-20.0 Serum Glucose 100 74-106 mg/dL Calcium Level 10.3 8.7-10.4 mg/dL Troponin I High Sensitivity 6 </=34 ng/L Thyroid Stimulating Hormone (TSH) 0.68 0.55-4.78 uIU/mL Urine Color Colorless Yellow Urine Clarity Turbid H Clear Urine pH 6.0 5.0-9.0 Urine Specific [place] 1.008 1.001-1.035 Urine Protein Negative Negative Urine Ketones Negative Negative Urine Blood Negative Negative /uL Urine Nitrite Negative Negative Urine Bilirubin Negative Negative Urine Urobilinogen Normal Negative mg/dL Urine Leukocyte Esterase 3+ Negative /uL Urine RBC 3 0 - 4 /hpf Urine WBC Clumps Present None Seen /hpf Urine Microscopic WBC 310 H 0-5 /HPF Urine Squamous Epithelial Cells Few <5 /hpf Urine Bacteria Few H None Seen /hpf Urine Hyaline Casts Few 0 - 2 /lpf Urine Mucus Few None Seen Urine Glucose Normal Normal mg/dL Assessment/Plan Assessment/Plan Assessment Complicated UTI Nasal fracture Hypertension Thyroid Admit the patient to Med surge to the hospitalist Pain management Rocephin Urine bacterial culture pending Resume home medications Continue treatment per orders Plan discussed with: Patient My Orders Orders - YESY MARCH Procedure Category Date Status Time Admit ADMIT 03/11/25 Transmitted 19:33 Urine Bacterial ANEUDY 03/11/25 In Process Culture 19:39 Ceftriaxone 1gm/50ml PHA 03/12/25 In Process D5w (Rocephin) 09:00 Pantoprazole Tablet PHA 03/12/25 In Process (Protonix Tablet) 06:00 Levothyroxine Tablet PHA 03/12/25 In Process (Synthroid Tablet) 06:00 Losartan Tablet PHA 03/12/25 In Process (Cozaar Tablet) 10:00 Basic Metabolic Panel LAB 03/12/25 Logged 04:00 Hydrocodone-Acet PHA 03/11/25 In Process 5/325mg Tab ([place] 19:45 Ondansetron Hcl PHA 03/11/25 In Process (Zofran) 19:45 Condition: Stable WHITNEY 03/11/25 In Process 19:39 Acetaminophen Tablet PHA 03/11/25 In Process (Tylenol Tablet) 19:45 Bedrest With Bathroom WHITNEY 03/11/25 In Process Privileg 19:39 Date of Service: Mar 11, 2025 Billing Provider: YESY MARCH Common Visit Codes: [id number] INP/OBS CARE (HIGH) YESY MARCH Mar 12, 2025 03:44
[2025-03-12] MEDS: LEVOTHYROXINE SODIUM 25 MCG TAB PO SCH (05:40)
[2025-03-12] MEDS: PANTOPRAZOLE 40 MG TAB PO SCH (05:40)
[2025-03-12 06:49] LABS: Potassium 3.9 mmol/L (3.5-5.1); Sodium 141 mmol/L (136-145)
[2025-03-12 06:50] LABS: Anion Gap 9 (5-15); Calcium 9.3 mg/dL (8.7-10.4); Carbon Dioxide 24 mmol/L (20-31)
[2025-03-12 06:55] LABS: BUN/Creatinine Ratio 15.1 (10.0-20.0); Blood Urea Nitrogen 11 mg/dL (9-23); Glucose 88 mg/dL (74-106)
[2025-03-12 07:01] LABS: Chloride 108 mmol/L (98-107)
[2025-03-12] MEDS: LOSARTAN POTASSIUM 25 MG TAB PO SCH (08:52)
[2025-03-12] MEDS: cefTRIAXone 1GM/50ML D5W 50 ML IV SCH (08:52)
--- NOTE | 2025-03-12 12:58 | DVHPN2 ---
Subjective Seen and examined at bedside, patient had a mechanical fall at [facility], [place]. Patient has a nasal fracture. Been complaining of UTI symptoms was seen in Urology consult on by Dr. Hanks, failed outpatient therapy. Changes from previous H/P or p: No Changes Objective Vitals Vital Signs Date Time Temp Pulse Resp B/P (MAP) Pulse Ox O2 Delivery O2 Flow Rate FiO2 03/12/25 09:24 97.9 63 18 138/68 (91) 96 97.9 03/12/25 08:00 Room Air* 0 21 Intake/Output Intake and Output 03/12/25 07:00 Intake Total 0 ml Balance 0 ml Intake Oral 0 ml # Voids 3 General Appearance: Alert, Oriented X3, Cooperative HEENT: Other (Facial Bruising) Lungs: Clear to auscultation Cardiovascular: Regular rate, Normal S1, Normal S2 Abdomen: Normal bowel sounds, Soft Psych/Mental Status: Mental status NL Medications Current Medications Medications Dose Ordered Sig/Marisa Route Start Time Stop Time Status Last Admin Dose Admin Ceftriaxone Sodium 50 ml @ 100 mls/hr DAILY@09 IV 03/12/25 09:00 03/12/25 08:52 100 MLS/HR Pantoprazole Sodium 40 mg DAILY@0600 PO 03/12/25 06:00 03/12/25 05:40 40 MG Levothyroxine Sodium 75 mcg QAM@0600 PO 03/12/25 06:00 03/12/25 05:40 75 MCG Losartan Potassium 25 mg DAILY PO 03/12/25 10:00 03/12/25 08:52 25 MG Acetaminophen/ Hydrocodone Bitart 1 tab Q4HP PRN PO 03/11/25 19:45 Ondansetron HCl 4 mg Q4HP PRN IV 03/11/25 19:45 Acetaminophen 650 mg Q6HP PRN PO 03/11/25 19:45 03/11/25 21:58 650 MG Laboratory Results Laboratory Tests 03/11/25 15:50 03/12/25 06:03 Chemistry Test 03/11/25 15:50 03/12/25 06:03 Calcium Level 10.3 mg/dL (8.7-10.4) 9.3 mg/dL (8.7-10.4) HgA1c, TSH Test 03/11/25 15:50 Thyroid Stimulating Hormone (TSH) 0.68 uIU/mL (0.55-4.78) Urinalysis Test 03/11/25 15:00 Urine Color Colorless (Yellow) Urine Clarity Turbid (Clear) H Urine pH 6.0 (5.0-9.0) Urine Specific [place] 1.008 (1.001-1.035) Urine Protein Negative (Negative) Urine Ketones Negative (Negative) Urine Blood Negative /uL (Negative) Urine Nitrite Negative (Negative) Urine Bilirubin Negative (Negative) Urine Urobilinogen Normal mg/dL (Negative) Urine Leukocyte Esterase 3+ /uL (Negative) Urine RBC 3 /hpf (0 - 4) Urine WBC Clumps Present /hpf (None Seen) Urine Microscopic WBC 310 /HPF (0-5) H Urine Squamous Epithelial Cells Few /hpf (<5) Urine Bacteria Few /hpf (None Seen) H Urine Hyaline Casts Few /lpf (0 - 2) Urine Mucus Few (None Seen) Urine Glucose Normal mg/dL (Normal) Microbiology Microbiology Date/Time Source Procedure Growth Status 03/11/25 15:00 Voided Urine Urine Culture - Preliminary Resulted Assessment/Plan Assessment/Plan # Complicated UTI with failed outpatient therapy - Rocephin IV # Nasal Fracture # Mechanical Fall # HTN - Monitor and adjust meds as needed # Thyroid Nodules - US thyroid # Goals of care discussion >18 mins DNR/DNI Plan discussed with: Patient My Orders Orders - JASON SAPP MD Procedure Category Date Status Time Thyroid US 03/12/25 Logged 12:48 Date of Service: Mar 12, 2025 Billing Provider: JASON SAPP MD Common Visit Codes: [id number] INP/OBS CARE(HIGH) Secondary Visit Codes: [id number] CARE PLAN 30 MINUTES JASON SAPP MD Mar 12, 2025 12:58
--- NOTE | 2025-03-12 14:38 | DVH ---
ULTRASOUND SOFT TISSUE HEAD AND NECK CLINICAL INDICATION: Nodules TECHNIQUE: Multiple real time sonographic images of the thyroid were obtained. COMPARISON: Prior exam dated none FINDINGS: The right thyroid gland measures 4.1 x 1.4 x 1.4 cm. The left thyroid gland measures approximately 4.4 x 1.5 x 1.8 cm. The isthmus measures 0.4 cm. The thyroid gland is heterogeneous. There are TI-RADS 2 cystic nodules in the bilateral thyroid gland measuring 0.5 cm in the right thyroid gland and 0.3 cm left thyroid gland. IMPRESSION: Heterogeneous thyroid gland with benign TI-RADS 2 cystic nodules. [employer] TI-RADS Categories and Recommendations (2017): TR1: 0 points, Benign, No FNA TR2: 2 points, Not suspicious, No FNA TR3: 3 points, Mildly suspicious, FNA if > or = 2.5 cm, Follow if > or = 1.5 cm TR4: 4-6 points, Moderately Suspicious, FNA if > or = 1.5 cm, Follow if > or = 1.0 cm TR5: 7+ points, Highly Suspicious, FNA if > or = 1.0 cm, Follow if > or = 0.5 cm Follow-up ultrasound guidelines: TR5: yearly for 5 years, if no growth or change in TI-RADS level TR4: at 1, 2, 3 and 5 years, if no growth or change in TI-RADS level TR3: at 1, 3 and 5 years, if no growth or change in TI-RADS level If increased but below threshold for FNA, repeat in one year. Source: ACR Thyroid Imaging, Reporting and Data System (TI-RADS): White Paper of the ACR TI-RADS Committee. Mao et al., J Am Jalen Radiol 2017;14:587-595.
[2025-03-13 01:00] VITALS: BP 103/48; PULSE 65; RESP 16; TEMP 97.9; O2SAT 96
[2025-03-13 05:00] VITALS: BP 122/59; PULSE 62; RESP 16; TEMP 97.5; O2SAT 95
[2025-03-13 07:53] VITALS: BP_SYST 125; BP_SYST 128; BP_DIAS 47; BP_DIAS 63; PULSE 61; PULSE 66; RESP 18; RESP 20; TEMP 97.6; O2SAT 93; O2SAT 95
[2025-03-13 08:00] VITALS: PULSE 68; RESP 18; O2SAT 98
[2025-03-13 13:00] VITALS: BP 134/87; PULSE 18; RESP 93; TEMP 97.2; O2SAT 93
[2025-03-13] MEDS ORDERED: CIPR500T4 PO (13:38)
[2025-03-13 14:51] VITALS: BP 116/69
== END 2025-03-13 16:00 | disposition home or self-care (01) | DRG 155 ==
LOC: ER 12:07 → OVERFLOW 19:33 → CENTRAL 21:30
PROVIDERS: ADMIT Hospitalist; ATTEND Hospitalist
DX: S02.2XXA Fracture of nasal bones, initial encounter for closed fracture (principal); N39.0 Urinary tract infection, site not specified; I10 Essential (primary) hypertension; E04.2 Nontoxic multinodular goiter; K21.9 Gastro-esophageal reflux disease without esophagitis; S01.81XA Laceration without foreign body of other part of head, initial encounter; S01.512A Laceration without foreign body of oral cavity, initial encounter; E78.5 Hyperlipidemia, unspecified; Z88.0 Allergy status to penicillin; Z82.49 Family history of ischemic heart disease and other diseases of the circulatory system; Z88.2 Allergy status to sulfonamides; Z79.2 Long term (current) use of antibiotics; Z79.899 Other long term (current) drug therapy; Z90.49 Acquired absence of other specified parts of digestive tract; W18.39XA Other fall on same level, initial encounter; Y93.89 Activity, other specified; Y92.89 Other specified places as the place of occurrence of the external cause; Y99.8 Other external cause status
CPT/HCPCS: 36415; 70450; 70486; 72125; 76536; 80048; 81001; 84443; 84484; 85025; 87086; G0378

== ENCOUNTER 2025-05-22 07:02 | Outpatient (CLI) | payer OTHER ==
[~2025-05-22 07:02] MED LIST changes: -ALBU108A5 IN; -BENZ100C97 PO; +CIPR500T4 PO; +FOLI-119 PO; -NIRM1TAB8 PO; +PANT40T PO
[2025-05-22 10:10] LABS: Cholesterol 194 mg/dL (< 200)
[2025-05-22 10:12] LABS: Triglycerides 109 mg/dL (< 150)
[2025-05-22 10:13] LABS: HDL Cholesterol 45 mg/dL (40-59)
[2025-05-22 14:13] LABS: Microalb/Creat Ratio, Urine 7.0
== END 2025-05-22 17:00 | disposition home or self-care (01) ==
LOC: LAB 07:02
PROVIDERS: ATTEND Internal Medicine
DX: E03.9 Hypothyroidism, unspecified (principal); R73.03 Prediabetes; R80.9 Proteinuria, unspecified
CPT/HCPCS: 36415; 80061; 82043; 82570; 83036; 84443

== ENCOUNTER 2025-05-27 09:56 | Outpatient (CLI) | payer OTHER ==
[2025-05-27 11:12] LABS: Free T3 2.89 pg/mL (2.3-4.2)
[2025-05-27 11:14] LABS: Free T4 (Free Thyroxine) 1.39 ng/dL (0.89-1.76)
== END 2025-05-27 17:00 | disposition home or self-care (01) ==
LOC: LAB 09:56
PROVIDERS: ATTEND Internal Medicine
DX: R94.6 Abnormal results of thyroid function studies (principal)
CPT/HCPCS: 36415; 84439; 84443; 84481

== ENCOUNTER 2025-07-04 07:20 | Outpatient (CLI) | payer OTHER ==
[2025-07-04 08:25] LABS: Albumin 4.4 g/dL (3.2-4.8); Alkaline Phosphatase 85 U/L (46-116); Anion Gap 8 (5-15); BUN/Creatinine Ratio 10.5 (10.0-20.0); Blood Urea Nitrogen 9 mg/dL (9-23); Calcium 9.5 mg/dL (8.7-10.4); Carbon Dioxide 26 mmol/L (20-31); Chloride 105 mmol/L (98-107); Glucose 91 mg/dL (74-106); Magnesium 2.0 mg/dL (1.6-2.6); Potassium 4.0 mmol/L (3.5-5.1); Sodium 139 mmol/L (136-145); Total Protein 7.7 g/dL (5.7-8.2)
[2025-07-04 08:26] LABS: Bilirubin, Total 0.7 mg/dL (0.2-1.0)
[2025-07-04 08:27] LABS: Alanine Aminotransferase 9 U/L (7-40)
== END 2025-07-04 17:00 | disposition home or self-care (01) ==
LOC: LAB 07:20
PROVIDERS: ATTEND Internal Medicine
DX: E03.9 Hypothyroidism, unspecified (principal); R73.03 Prediabetes; R55 Syncope and collapse
CPT/HCPCS: 36415; 80053; 83735; 84443; 85379

== ENCOUNTER 2025-10-08 06:59 | Outpatient (CLI) | payer OTHER ==
[2025-10-08 07:56] LABS: Triglycerides 88 mg/dL (< 150)
[2025-10-08 07:58] LABS: Cholesterol 188 mg/dL (< 200); HDL Cholesterol 57 mg/dL (40-59)
== END 2025-10-08 17:00 | disposition home or self-care (01) ==
LOC: LAB 06:59
PROVIDERS: ATTEND Internal Medicine
DX: I51.7 Cardiomegaly (principal); E04.1 Nontoxic single thyroid nodule; R73.03 Prediabetes; Z79.899 Other long term (current) drug therapy
CPT/HCPCS: 36415; 80061; 82306; 82607; 83036